=== PATIENT | female | born 1965 | race Caucasian/White ===

== ENCOUNTER → 2021-04-11 | Outpatient (CLI) | payer OTHER ==
[2021-04-11 15:06] LABS: Basophils # (A) 0.07 X 10*3/uL (0.00-0.10); Basophils % (A) 0.9 %; Eosinophils # (A) 0.21 X 10*3/uL (0.04-0.35); Eosinophils % (A) 2.7 %; HCT 42.3 % (37.2-46.3); HGB 14.2 g/dL (12.0-15.0); Lymphocytes # (A) 2.02 X 10*3/uL (0.90-5.00); Lymphocytes % (A) 26.3 %; MCH 33.9 pg (27.0-32.0); MCHC 33.6 g/dL (32.0-37.0); Mean Platelet Volume 10.1 fL (9.5-12.2); Monocytes # (A) 0.88 X 10*3/uL (0.20-1.00); Monocytes % (A) 11.4 %; Neutrophils # (A) 4.46 X 10*3/uL (1.80-7.70); Platelet Count 210 X 10*3/uL (140-440); RBC 4.19 X 10*6/uL (4.10-5.20); RDW 12.6 % (11.5-14.5); WBC 7.69 X 10*3/uL (4.50-10.00)
[2021-04-11 15:50] LABS: ALT 39 U/L (8-44); AST 35 U/L (13-35); African American GFR (CKD) 116.4 (60.0-200.0); Albumin 4.4 g/dL (3.8-4.9); Albumin/Globulin Ratio 1.64 (1.60-3.17); Alkaline Phosphatase 93 U/L (41-126); BUN/Creat Ratio 23.87 Ratio (12.00-20.00); Blood Urea Nitrogen 15.3 mg/dL (9.0-27.0); Calcium 9.4 mg/dL (8.7-10.3); Carbon Dioxide 24.1 mmol/L (20.0-27.5); Chloride 99 mmol/L (96-109); Globulin 2.7 g/dL (1.6-3.3); Glucose 108 mg/dL (70-110); LDL Cholesterol,Calculated 87.9 mg/dL (0.0-131.0); Non-African American GFR(CKD) 100.4 (60.0-200.0); Potassium 4.4 mmol/L (3.5-5.5); Sodium 138 mmol/L (135-145)
[2021-04-11 15:51] LABS: Chol/HDL Ratio 2.42 Ratio
== END | disposition home or self-care (01) ==
LOC: LABWHC1 09:23
PROVIDERS: ATTEND Internal Medicine
DX: Z11.59 Encounter for screening for other viral diseases (principal); I10 Essential (primary) hypertension
CPT/HCPCS: 36415; 80053; 80061; 84443; 85025; 86803

== ENCOUNTER → 2021-05-10 | Outpatient (CLI) | payer OTHER ==
--- NOTE | 2021-05-10 14:52 | CTL ---
E EXAMINATION TYPE: CT Low Dose Lung DATE OF EXAM ORDERED: 05/10/2021 HISTORY: 56-year-old female Z87.891, Personal history of tobacco use. Lung cancer screening CT DLP: [address] CTDI: 2.45 mGy Automated exposure control for dose reduction was used. SCREENING VISIT: Baseline COMPARISON: None TECHNIQUE: Low dose computed tomography scan was performed through the chest with coronal and sagitta l reconstructions. CT DIAGNOSTIC QUALITY: Limited, but interpretable FINDINGS: Heart normal size without pericardial effusion. Mild aneurysm ascending aorta at 4.0 cm. Conventional vessel branching anatomy. Calcified subcarinal and bilateral hilar lymph nodes compatible with prior granulomatous disease. Mild/moderate diffuse bronchial wall thickening. Scattered bilateral benign calcified granulomas. 3 mm anterior right lower lung pulmonary nodule, axial image 149. 4 mm subpleural pulmonary nodule lateral left upper lobe, axial image 74. No consolidation or pleural effusion. Visualized upper abdomen shows no gross abnormality allowing for noncontrast, low-dose technique. Multiple moderate degenerative disc disease mid to lower thoracic spine with anterior plate spondylos is lower thoracic spine. IMPRESSION: 1. LungRADS 2, benign. Evidence of prior granulomatous disease. A couple noncalcified pulmonary nodul es measuring 4 mm and 3 mm on baseline screening. 2. Mild to moderate bronchial wall thickening suggests bronchitis or chronic asthma. Recommend smokin g cessation. 3. Mild aneurysm ascending aorta at 4.[address] LUNG RAD AND CT CHEST RECOMMENDATION: Lung-Rad 2 Benign Appearance or Behavior: Continue annual sc reening with LDCT in 12 months. S Modifier (other clinically significant findings): S, follow-up as clinically indicated for the mild ascending aortic aneurysm.
== END | disposition home or self-care (01) ==
LOC: RADCTMAIN 14:01
PROVIDERS: ATTEND Internal Medicine
DX: Z12.2 Encounter for screening for malignant neoplasm of respiratory organs (principal); R91.8 Other nonspecific abnormal finding of lung field; I71.2 Thoracic aortic aneurysm, without rupture; J98.09 Other diseases of bronchus, not elsewhere classified; Z87.891 Personal history of nicotine dependence
CPT/HCPCS: 71271

== ENCOUNTER → 2021-06-08 | Outpatient (CLI) | payer OTHER ==
--- NOTE | 2021-06-11 09:19 | MM ---
Reason for exam: screening (asymptomatic). Last mammogram was performed 12 years and 3 months ago. History: Patient is postmenopausal. Family history of breast cancer in paternal aunt. Took hormonal contraceptives for 2 months. Physical Findings: A clinical breast exam by your physician is recommended on an annual basis and results should be correlated with mammographic findings. MG Screening Mammo w CAD Bilateral CC, MLO, and XCCL view(s) were taken. Prior study comparison: February 27, 2009, bilateral digital screening mammogram. There are scattered fibroglandular densities. There is no discrete abnormality. ASSESSMENT: Negative, BI-RAD 1 RECOMMENDATION: Routine screening mammogram of both breasts in 1 year.
== END | disposition home or self-care (01) ==
LOC: RADMAMWWP 11:28
PROVIDERS: ATTEND Internal Medicine
DX: Z12.31 Encounter for screening mammogram for malignant neoplasm of breast (principal); Z78.0 Asymptomatic menopausal state; Z80.3 Family history of malignant neoplasm of breast
CPT/HCPCS: 77067

== ENCOUNTER 2021-06-14 11:10 | Day surgery (SDC) | payer OTHER ==
[2021-06-12 18:21] VITALS: BMI 36.8
[~2021-06-14 11:10] MED LIST: LACTATED RINGERS 1,000 ML IV SCH; LIDOCAINE 1% (10MG/ML) FOR IV START INTRADERMA PRN
[2021-06-14 11:32] VITALS: TEMP 97.8
[2021-06-14] MEDS ORDERED: LACTATED RINGERS 1,000 ML IV ONE (11:32)
[2021-06-14] MEDS ORDERED: PROPOFOL 10 MG/ML 20 ML VIAL IV ONE (12:23)
[2021-06-14] MEDS ORDERED: LIDOCAINE 1% INJ 10MG/ML (20 ML MDV) ONE (12:23)
--- NOTE | 2021-06-14 12:50 | P.OP ---
Date of Procedure: 06/14/21 Preoperative Diagnosis: Screening, positive cologuard Procedure(s) Performed: Colonoscopy Anesthesia: MAC Surgeon: Memo Blanchard Estimated Blood Loss (ml): 0 Condition: stable Disposition: same day Description of Procedure: Patient is brought operative suite placed in left lateral decubitus position underwent sedation per department of anesthesia timeout performed correct patient correct procedure correct site was verified rectal exam was performed no gross abnormalities are noted scope was passed from the rectum to the cecum with the slowly withdrawn make sure to visualize all hollins of the colon on the way out there is for polyps noted to in the transverse colon one of these was small and sessile and removed via cold forceps biopsy the second was more pedunculated removed via hot snare polypectomy was 2 polyps also noted within the descending colon and both of these were removed via hot snare polypectomy. No other gross abnormalities are noted patient tolerated the procedure well no apparent complications she'll need a repeat colonoscopy in 5 years
[2021-06-14 13:16] VITALS: BP 135/85; PULSE 50; RESP 20
== END 2021-06-14 13:24 | disposition home or self-care (01) ==
LOC: ORWHC2ENDO 11:10
PROVIDERS: ATTEND Student in an Organized Health Care Education/Training Program
DX: D12.4 Benign neoplasm of descending colon (principal); D12.3 Benign neoplasm of transverse colon; I10 Essential (primary) hypertension; E78.5 Hyperlipidemia, unspecified; Z80.0 Family history of malignant neoplasm of digestive organs; Z86.73 Personal history of transient ischemic attack (TIA), and cerebral infarction without residual deficits; Z90.49 Acquired absence of other specified parts of digestive tract; Z98.51 Tubal ligation status; Z83.3 Family history of diabetes mellitus; Z82.49 Family history of ischemic heart disease and other diseases of the circulatory system; F17.210 Nicotine dependence, cigarettes, uncomplicated; Z79.899 Other long term (current) drug therapy
CPT/HCPCS: 88305; 45380; 45385; J2001; J2704

== ENCOUNTER 2021-08-31 07:34 | Emergency (ER) | payer OTHER ==
[2021-08-31 07:40] VITALS: RESP 18; TEMP 98.1
[2021-08-31] MEDS ORDERED: KETOROLAC 15 MG/ML 1 ML VIAL IM STA (08:27)
--- NOTE | 2021-08-31 08:41 | ED ---
General Adult HPI - General Chief complaint: Neck Pain/Injury Stated complaint: Neck pain Time Seen by Provider: 08/31/21 07:35 Source: patient Mode of arrival: ambulatory Limitations: no limitations - History of Present Illness Initial comments: Patient is a 56-year-old female with past medical history of hypertension who presents to the emergency department with left-sided neck pain. States it has been persistent for the past 2 weeks. She denies any traumatic injuries. 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 She is right-hand dominant. Pain is left side. Feels better when she massages the area. She has been taking Tylenol without improvement in her symptoms. Followed up with her primary care doctor who told her to change her pillow. She has been placing ice to the site. She denies any lateralizing weakness. No headaches or visual changes. No chest pain or shortness of breath. No numbness or tingling in her extremities. No vertigo. No other alleviating, precipitating modifying factors - Related Data Home Medications Medication Instructions Recorded Confirmed Aspirin 325 mg PO DAILY 06/12/21 06/14/21 Atenolol [Tenormin] 50 mg PO DAILY 06/12/21 06/14/21 Atorvastatin [Lipitor] 20 mg PO HS 06/12/21 06/14/21 Eye Drops (Unsure Of Which 2) 1 drop BOTH EYES DIRECTED 06/12/21 06/14/21 Lisinopril-Hctz 20-12.5 mg 1 tab PO DAILY 06/12/21 06/14/21 [Zestoretic 20-12.5] Vitamin D3 (Unknown) 1 tab PO DAILY 06/12/21 06/14/21 Zinc (Unknown Dose) 1 tab PO DAILY 06/12/21 06/14/21 Previous Rx's Medication Instructions Recorded Cyclobenzaprine [Flexeril] 10 mg PO TID PRN #24 tab 08/31/21 Naproxen [Naprosyn] 500 mg PO Q12HR #40 tab 08/31/21 Allergies Allergy/AdvReac Type Severity Reaction Status Date / Time No Known Allergies Allergy Verified 08/31/21 07:40 Review of Systems ROS Statement: Those systems with pertinent positive or pertinent negative responses have been documented in the HPI. ROS Other: All systems not noted in ROS Statement are negative. Past Medical History Past Medical History: No Reported History History of Any Multi-Drug Resistant Organisms: None Reported Past Surgical History: Cholecystectomy, Tubal Ligation Past Psychological History: No Psychological Hx Reported Smoking Status: Current every day smoker Past Alcohol Use History: Occasional Past Drug Use History: None Reported General Exam Limitations: no limitations General appearance: alert, in no apparent distress Head exam: Present: atraumatic, normocephalic, normal inspection Eye exam: Present: normal appearance, PERRL, EOMI. Absent: scleral icterus, conjunctival injection, periorbital swelling ENT exam: Present: normal exam, mucous membranes moist Neck exam: Present: tenderness (left paracervical tenderness. ropey texture left trapezius). Absent: meningismus, lymphadenopathy Respiratory exam: Present: normal lung sounds bilaterally. Absent: respiratory distress, wheezes, rales, rhonchi, stridor Cardiovascular Exam: Present: regular rate, normal rhythm, normal heart sounds. Absent: systolic murmur, diastolic murmur, rubs, gallop, clicks GI/Abdominal exam: Present: soft, normal bowel sounds. Absent: distended, tenderness, guarding, rebound, rigid Extremities exam: Present: normal inspection, full ROM, normal capillary refill, other (equal separator inserter strength). Absent: tenderness, pedal edema, joint swelling, calf tenderness Back exam: Present: normal inspection Neurological exam: Present: alert, oriented X3, CN II-XII intact Psychiatric exam: Present: normal affect, normal mood Skin exam: Present: warm, dry, intact, normal color. Absent: rash Course Vital Signs 08/31/21 08/31/21 07:35 08:57 Temperature 98.1 F Pulse Rate 68 70 Respiratory 18 18 Rate Blood Pressure 132/66 130/68 O2 Sat by Pulse 98 98 Oximetry Medical Decision Making - Medical Decision Making Upon arrival patient is placed into room 2. Symptoms consistent with trapezius strain. She is given a 30 mg IM injection of Toradol. Patient will be discharged home with a prescription for Naprosyn and Flexeril. Instructed to place warm compresses to the site. Follow-up with her doctor in 2 to 4 days and return for any new or worsening symptoms Disposition Clinical Impression: Trapezius muscle strain Disposition: HOME SELF-CARE Condition: Stable Instructions (If sedation given, give patient instructions): Neck Pain (ED) Additional Instructions: Take the pain medications as directed. Only take the muscle relaxer when you are at home and not driving as they may make you sleep. Use a warm compress to the site. Follow-up with your doctor in 2-4 days or return for any new or worsening symptoms Prescriptions: Cyclobenzaprine [Flexeril] 10 mg PO TID PRN #24 tab PRN Reason: Muscle Spasm Naproxen [Naprosyn] 500 mg PO Q12HR #40 tab Is patient prescribed a controlled substance at d/c from ED?: No Referrals: Mike Moon MD [Primary Care Provider] - 1-2 days Time of Disposition: 08:41
[2021-08-31 08:58] VITALS: BP 130/68; PULSE 70
== END 2021-08-31 08:57 | disposition home or self-care (01) ==
LOC: EC 07:34
DX: S16.1XXA Strain of muscle, fascia and tendon at neck level, initial encounter (principal); I10 Essential (primary) hypertension; F17.200 Nicotine dependence, unspecified, uncomplicated; Z79.82 Long term (current) use of aspirin; Z79.899 Other long term (current) drug therapy; X58.XXXA Exposure to other specified factors, initial encounter
CPT/HCPCS: 99283; 96372; J1885

== ENCOUNTER 2021-11-21 02:45 | Observation (INO) | payer OTHER ==
[2021-11-21 03:24] LABS: Basophils % (A) 0 %; Eosinophils # (A) 0.1 k/uL (0-0.7); Eosinophils % (A) 2 %; HCT 38.5 % (34.0-46.0); Lymphocytes % (A) 28 %; MCHC 36.3 g/dL (31.0-37.0); MCV 99.3 fL (80.0-100.0); Mean Platelet Volume 8.1; Monocytes # (A) 0.2 k/uL (0-1.0); Monocytes % (A) 7 %; Neutrophils % (A) 60 %; Platelet Count 107 k/uL (150-450); RBC 3.88 m/uL (3.80-5.40); RDW 13.1 % (11.5-15.5); WBC 3.4 k/uL (3.8-10.6)
[2021-11-21 03:35] LABS: Partial Thromboplastin Time 23.2 sec (22.0-30.0); Prothrombin Time 10.6 sec (9.0-12.0)
[2021-11-21 03:38] LABS: ALT 93 U/L (4-34); AST 105 U/L (14-36); African American GFR (CKD) >90 (>60 ml/min/1.73 sqM); Albumin 4.6 g/dL (3.5-5.0); Alkaline Phosphatase 82 U/L (38-126); Anion Gap 18 mmol/L; Blood Urea Nitrogen 12 mg/dL (7-17); Calcium 9.3 mg/dL (8.4-10.2); Carbon Dioxide 21 mmol/L (22-30); Chloride 81 mmol/L (98-107); Glucose 148 mg/dL (74-99); Magnesium 1.4 mg/dL (1.6-2.3); Non-African American GFR(CKD) >90 (>60 ml/min/1.73 sqM); Potassium 3.1 mmol/L (3.5-5.1); Sodium 120 mmol/L (137-145); Total Bilirubin 0.5 mg/dL (0.2-1.3); Total Protein 7.5 g/dL (6.3-8.2)
--- NOTE | 2021-11-21 03:53 | ED ---
Chest Pain HPI - General Chief Complaint: Chest Pain Stated Complaint: Chest pain Time Seen by Provider: 11/21/21 03:48 Source: patient, RN notes reviewed, old records reviewed Mode of arrival: ambulatory Limitations: no limitations - History of Present Illness Initial Comments: This is a 56-year-old female DF for evaluation of chest pain chest pain started going on throughout the course of today with no history of the same. She has mild nausea mild shortness of breath symptoms are worse with exertion. MD Complaint: chest pain -: hour(s) Onset: during rest, during exertion Pain Location: substernal Pain Radiation: none Severity: moderate Severity scale (1-10): 5 Quality: tightness, aching, heaviness Consistency: constant Improves With: nothing Worsens With: nothing Context: recent illness Anginal Symptoms: diaphoresis, dyspnea Other Symptoms: cough Treatments Prior to Arrival: none - Related Data Home Medications Medication Instructions Recorded Confirmed Atorvastatin [Lipitor] 20 mg PO HS 06/12/21 11/21/21 atenoloL [Tenormin] 50 mg PO DAILY 06/12/21 11/21/21 Aspirin 325 mg PO DAILY 11/21/21 11/21/21 Previous Rx's Medication Instructions Recorded lisinopriL 40 mg PO DAILY #30 tab 11/22/21 Allergies Allergy/AdvReac Type Severity Reaction Status Date / Time No Known Allergies Allergy Verified 11/21/21 07:11 Review of Systems ROS Statement: Those systems with pertinent positive or pertinent negative responses have been documented in the HPI. ROS Other: All systems not noted in ROS Statement are negative. Past Medical History Past Medical History: No Reported History History of Any Multi-Drug Resistant Organisms: None Reported Past Surgical History: Cholecystectomy, Tubal Ligation Past Psychological History: No Psychological Hx Reported Smoking Status: Current every day smoker Past Alcohol Use History: Occasional Past Drug Use History: None Reported - Past Family History Father Family Medical History: COPD Mother Family Medical History: CVA/TIA, Myocardial Infarction ([place]) General Exam Limitations: no limitations General appearance: alert, in no apparent distress Head exam: Present: atraumatic, normocephalic, normal inspection Eye exam: Present: normal appearance, PERRL, EOMI. Absent: scleral icterus, conjunctival injection, periorbital swelling ENT exam: Present: normal exam, mucous membranes moist Neck exam: Present: normal inspection. Absent: tenderness, meningismus, lymphadenopathy Respiratory exam: Present: normal lung sounds bilaterally. Absent: respiratory distress, wheezes, rales, rhonchi, stridor Cardiovascular Exam: Present: regular rate, normal rhythm, normal heart sounds. Absent: systolic murmur, diastolic murmur, rubs, gallop, clicks GI/Abdominal exam: Present: soft, normal bowel sounds. Absent: distended, tenderness, guarding, rebound, rigid Extremities exam: Present: normal inspection, full ROM, normal capillary refill. Absent: tenderness, pedal edema, joint swelling, calf tenderness Back exam: Present: normal inspection Neurological exam: Present: alert, oriented X3, CN II-XII intact Psychiatric exam: Present: normal affect, normal mood Skin exam: Present: warm, dry, intact, normal color. Absent: rash Course Vital Signs 11/21/21 11/21/21 11/21/21 02:46 06:13 09:12 Temperature 98.2 F 97.9 F Pulse Rate 71 56 L 73 Respiratory 18 22 15 Rate Blood Pressure 167/85 156/90 120/67 O2 Sat by Pulse 98 97 97 Oximetry 11/21/21 16:51 Temperature Pulse Rate 57 L Respiratory 16 Rate Blood Pressure 130/85 O2 Sat by Pulse 99 Oximetry - Reevaluation(s) Reevaluation #1: Medical record is reviewed Patient feels improved here in the emergency department Patient feels comfortable for discharge Chest Pain MDM - MDM 56 female DF for evaluation. Patient be admitted for chest pain observation Disposition Clinical Impression: Atypical chest pain, Chest pain, Hyponatremia, Hypomagnesemia, Weakness Disposition: ADMITTED IP TO THIS HOSP Condition: Fair Is patient prescribed a controlled substance at d/c from ED?: No
--- NOTE | 2021-11-21 04:15 | XR ---
EXAMINATION TYPE: XR chest 2V DATE OF EXAM: 11/21/2021 COMPARISON: NONE HISTORY: Chest pain TECHNIQUE: FINDINGS: Heart and mediastinum are normal. Lungs are clear. Diaphragm is normal. Bony thorax appears normal. IMPRESSION: Normal chest.
[2021-11-21] MEDS ORDERED: MORPHINE SULFATE 4 MG/ML SYRINGE IV PRN (04:47)
[2021-11-21] MEDS ORDERED: ONDANSETRON 4 MG/2 ML VIAL IVP PRN (04:47)
[2021-11-21] MEDS ORDERED: NALOXONE 0.4 MG/ML 1 ML VIAL IV PRN (04:47)
[2021-11-21] MEDS: SODIUM CHLORIDE 0.9% 1,000 ML IV SCH ×2 (04:55→14:25)
[2021-11-21] MEDS: MAGNESIUM SULFATE-D5W PMX 1 GM in DEXTROSE/WATER 1 100ML.BAG IVPB SCH ×2 (05:26→06:35)
[2021-11-21] MEDS ORDERED: NICOTINE GUM (POLACRILEX) 2 MG GUM BUCCAL PRN (08:59)
[2021-11-21] MEDS ORDERED: TEMAZEPAM 15 MG CAP PO PRN (08:59)
[2021-11-21] MEDS ORDERED: ACETAMINOPHEN TAB 325 MG TAB PO PRN (08:59)
[2021-11-21] MEDS ORDERED: lisinopriL 20 MG TAB PO SCH ×2 (09:00→21:00)
[2021-11-21] MEDS ORDERED: PANTOPRAZOLE 40 MG/10 ML VIAL IV SCH (09:00)
--- NOTE | 2021-11-21 09:13 | P.HPIM ---
History of Present Illness H&P Date: 11/21/21 Chief Complaint: chest pain Patient is a 56-year-old female with known dyslipidemia, hypertension, and tobacco use who presented to the ER with complaints of chest pain. On arrival her blood pressure was 167/85. Laboratory analysis showed a white blood cell count of 3.4, platelets 107, sodium 120, potassium 3.1, chloride 81, carbon dioxide 21, magnesium 1.4. Initial troponin was negative. Patient seen and examined at bedside. Pain across bilateal chest that started yesterday and was constant in nature.., no shrotness of breath, no nausea, not light headed or dizzy, minimal tingling in her left arm, no significant sweating. no recent cough, cold, fevers, flus. + vomiting X 1 today, no diarrhea, no difficulty urinating. No hx of probelms with her sodium. Feels like she has been eating and drinking well at home. Pertinent positives and negatives as discussed in HPI, a complete review of systems was performed and all other systems are negative. Vital signs reviewed General: nontoxic, no distress, appears at stated age Derm: warm, dry Head: atraumatic, normocephalic, symmetric Eyes: EOMI, no lid lag, anicteric sclera, pupils equal round reactive to light ENT: Nose and ears atraumatic, no thrush, no pharyngeal erythema Neck: No thyromegaly, no cervical lymphadenopathy, trachea midline, supple Mouth: no lip lesion, mucus membranes moist Cardiovascular: S1S2 reg, no murmur, positive posterior tibial pulse bilateral, no edema, capillary refill less than 2 seconds Lungs: clear to auscultation bilateral, no rhonchi, no rales, no wheeze, no accessory muscle use Abdominal: soft, nontender to palpation, no guarding, no appreciable organomegaly, normal bowel sounds Ext: no gross muscle atrophy, muscle strength muscle strength 5 out of 5 in all 4 extremities, no contractures Neuro: CN II-XII grossly intact, light touch intact all 4 extremities, finger to nose within normal limits, Psych: Alert, oriented, appropriate affect Assessment/Plan: Atypical chest pain - trend troponin - check echo - tele - ASA - EKG ordered and obtained, patient currently chest pain free, rate 58, QRS 120, mild J point elevation in I, aVL, and V 6 , Left axis deviation - consult cardiology Hyponatremia - IVF fluids - serial lytes - consult nephro - hold HCTZ - check urine sodium, urine osmol, and serum osmol Hypomagnesemia - replaced - recheck in AM Hypokalemia - replace - recheck in AM Leukopenia Thrombocytopenia - Follow CBC Tobacco abuse - Cessation - nicotine replacement If SAIDH would check low dose chest CT given significant tobacco hx, but more likely due to dehydration. The patient is admitted with an anticipated greater than 2 midnight stay for evaluation of hyponatremia. Surrogate decision-maker: ravindra Parikh CODE STATUS:Full DVT prophylaxis: SCDs Discussed with: Patient, nursing Anticipated discharge date: in 2-[address]: home A total of 65 minutes was spent on the care of this complex patient more than 50% of the time was spent in counseling and care coordination. Past Medical History Past Medical History: Hyperlipidemia, Hypertension History of Any Multi-Drug Resistant Organisms: None Reported Past Surgical History: Cholecystectomy, Tubal Ligation Past Psychological History: No Psychological Hx Reported Smoking Status: Current every day smoker (1 ppd since age 21) Past Alcohol Use History: Occasional Past Drug Use History: None Reported - Past Family History Father Family Medical History: COPD Mother Family Medical History: CVA/TIA, Myocardial Infarction ([place]) Medications and Allergies Home Medications Medication Instructions Recorded Confirmed Type Atorvastatin [Lipitor] 20 mg PO HS 06/12/21 11/21/21 History Lisinopril-Hctz 20-12.5 mg 2 tab PO DAILY 06/12/21 11/21/21 History [Zestoretic 20-12.5] atenoloL [Tenormin] 50 mg PO DAILY 06/12/21 11/21/21 History Aspirin 325 mg PO DAILY 11/21/21 11/21/21 History Allergies Allergy/AdvReac Type Severity Reaction Status Date / Time No Known Allergies Allergy Verified 11/21/21 07:11 Physical Exam Osteopathic Statement: *. No significant issues noted on an osteopathic structural exam other than those noted in the History and Physical/Consult. Vitals: Vital Signs Temp Pulse Resp BP Pulse Ox 11/21/21 06:13 97.9 F 56 L 22 156/90 97 11/21/21 02:46 98.2 F 71 18 167/85 98 Intake and Output 11/20/21 11/21/21 11/21/21 22:59 06:59 14:59 Other: Weight 104.326 kg Results CBC & Chem 7: 11/21/21 03:06 11/21/21 03:06 Labs: Abnormal Lab Results - Last 24 Hours (Table) 11/21/21 11/21/21 Range/Units 03:06 03:06 WBC 3.4 L (3.8-10.6) k/uL MCH 36.0 H (25.0-35.0) pg Plt Count 107 L (150-450) k/uL Sodium 120 L (137-145) mmol/L Potassium 3.1 L (3.5-5.1) mmol/L Chloride 81 L (98-107) mmol/L Carbon Dioxide 21 L (22-30) mmol/L Glucose 148 H (74-99) mg/dL Magnesium 1.4 L (1.6-2.3) mg/dL AST 105 H (14-36) U/L ALT 93 H (4-34) U/L
[2021-11-21] MEDS: ASPIRIN 325 MG TAB PO SCH (09:14)
[2021-11-21] MEDS: atenoloL 50 MG TAB PO SCH (09:14)
[2021-11-21] MEDS: NICOTINE 21MG/24HR PATCH TRANSDERM SCH (09:14)
[2021-11-21 10:40] LABS: African American GFR (CKD) >90 (>60 ml/min/1.73 sqM); Anion Gap 14 mmol/L; Blood Urea Nitrogen 13 mg/dL (7-17); Calcium 8.9 mg/dL (8.4-10.2); Carbon Dioxide 27 mmol/L (22-30); Chloride 82 mmol/L (98-107); Glucose 160 mg/dL (74-99); Non-African American GFR(CKD) >90 (>60 ml/min/1.73 sqM); Potassium 3.5 mmol/L (3.5-5.1); Sodium 123 mmol/L (137-145)
--- NOTE | 2021-11-21 11:52 | CA ---
Transthoracic Echo Report Name: Leola Sharif Age: 56 Gender: F : 1965 Exam Date: 11/21/2021 10:52 Exam Location: [facility] Ht (in): 67 Wt (lb): 230 Ordering Physician: Saniya Cortes DO Attending/Referring Phys: Business Education Professor April Gonzalez, TRACEY Procedure CPT: Indications: Chest Pain Cardiac Hx: Smoker, Htn, Fm hx of heart disease Technical Quality: Fair Contrast 1: Total Dose (mL): Contrast 2: Total Dose (mL): MEASUREMENTS (Male / Female) Normal Values 2D ECHO LV Diastolic Diameter PLAX 5.7 cm 4.2 - 5.9 / 3.9 - 5.3 cm LV Systolic Diameter PLAX 4.1 cm IVS Diastolic Thickness 1.2 cm 0.6 - 1.0 / 0.6 - 0.9 cm LVPW Diastolic Thickness 1.2 cm 0.6 - 1.0 / 0.6 - 0.9 cm LV Relative Wall Thickness 0.4 M-MODE Aortic Root Diameter MM 3.3 cm LA Systolic Diameter MM 4.0 cm LA Ao Ratio MM 1.2 MV E Point Septal Separation 0.8 cm AV Cusp Separation MM 2.2 cm DOPPLER AV Peak Velocity 128.4 cm/s AV Peak Gradient 6.6 mmHg MV Area PHT 2.5 cm??? MR Peak Velocity 96.5 cm/s MR Peak Gradient 3.7 mmHg Mitral E Point Velocity 78.3 cm/s Mitral A Point Velocity 105.8 cm/s Mitral E to A Ratio 0.7 MV Deceleration Time 302.8 ms TR Peak Velocity 150.1 cm/s TR Peak Gradient 9.0 mmHg Right Ventricular Systolic Press 13.2 mmHg FINDINGS Left Ventricle Mildly increased septal wall thickness. Mildly increased posterior wall thickness. Mildly increased left ventricular diastolic diameter. Left ventricular ejection fraction is estimated at 55-60 %. Left ventricular cavity size normal. Right Ventricle The right ventricle is normal in size and function. Right Atrium The right atrium is normal in size. Left Atrium The left atrium is normal in size. Mitral Valve Structurally normal mitral valve without significant stenosis or prolapse. There is trace mitral regurgitation. Aortic Valve Structurally normal aortic valve without significant sclerosis or stenosis. There is no aortic regurgitation. Tricuspid Valve Structurally normal tricuspid valve without significant stenosis. Pulmonary artery systolic pressure is normal. Trace tricuspid regurgitation. Pulmonic Valve Structurally normal pulmonic valve without significant stenosis. There is no pulmonic regurgitation. Pericardium Normal pericardium without effusion. Aorta Normal aortic root dimension. CONCLUSIONS Normal LV systolic function Previewed by: Dr. Figueroa Rosa MD (Electronically Signed) Final Date: 21 November 2021 11:51
--- NOTE | 2021-11-21 12:37 | P.NPCON ---
History of Present Illness - Reason for Consult hyponatremia - History of Present Illness Patient is a 56-year-old female with history of hypertension, tobacco abuse who was admitted to the hospital with complaints of chest pain. Patient denied any history of fever or chills. She denied any history of nausea vomiting or diarrhea. No new medications that were started recently No complaints of dizziness lightheadedness and no history of seizures. Serum sodium was noted to be 120 Patient denies any previous history of hyponatremia. Patient had been on thiazide diuretics at home which is now discontinued. Blood pressure was not low Patient was maintained on normal saline and repeat sodium is at 123. Urine osmolality is 165 previous sodium of 138 on 04/11/2021 Review of Systems As per HPI, other systems negative Past Medical History Past Medical History: Hyperlipidemia, Hypertension History of Any Multi-Drug Resistant Organisms: None Reported Past Surgical History: Cholecystectomy, Tubal Ligation Past Psychological History: No Psychological Hx Reported Smoking Status: Current every day smoker (1 ppd since age 21) Past Alcohol Use History: Occasional Past Drug Use History: None Reported - Past Family History Father Family Medical History: COPD Mother Family Medical History: CVA/TIA, Myocardial Infarction ([place]) Medications and Allergies Home Medications Medication Instructions Recorded Confirmed Type Atorvastatin [Lipitor] 20 mg PO HS 06/12/21 11/21/21 History Lisinopril-Hctz 20-12.5 mg 2 tab PO DAILY 06/12/21 11/21/21 History [Zestoretic 20-12.5] atenoloL [Tenormin] 50 mg PO DAILY 06/12/21 11/21/21 History Aspirin 325 mg PO DAILY 11/21/21 11/21/21 History Allergies Allergy/AdvReac Type Severity Reaction Status Date / Time No Known Allergies Allergy Verified 11/21/21 07:11 Physical Exam Vitals: Vital Signs Temp Pulse Resp BP Pulse Ox 11/21/21 09:12 73 15 120/67 97 11/21/21 06:13 97.9 F 56 L 22 156/90 97 11/21/21 02:46 98.2 F 71 18 167/85 98 Intake and Output 11/20/21 11/21/21 11/21/21 22:59 06:59 14:59 Output Total 39 Balance -39 Output: Post Void Residual 39 Other: Weight 104.326 kg Patient is awake, comfortable, not in any acute distress Examination of the heart S1 and S2 Examination lungs bilateral breath sounds are heard Abdomen is soft nontender Examination of the lower extremities shows no evidence of edema [employer] exam grossly intact Results - Lab Results Most recent lab results Calcium 8.9 mg/dL (8.4-10.2) 11/21/21 10:09 Magnesium 1.4 mg/dL (1.6-2.3) L 11/21/21 03:06 11/21/21 03:06 11/21/21 10:09 Assessment and Plan Assessment: 1. Hyponatremia. Patient appears euvolemic however serum sodium has improved with normal saline administration. They may be a component of hypovolemia. Patient was on thiazide diuretics which are currently on hold. I will continue with the saline for now. Check TSH level 2. Hypertension continue off of thiazide diuretics and increase MALIK inhibitor's 3. Hypokalemia secondary to diuretics, replace 4. Dyslipidemia maintained on Lipitor 5. Chest pain appears to be atypical Plan: Continue with saline Continue to hold hydrochlorothiazide Check TSH Increase oral protein intake Increase lisinopril
--- NOTE | 2021-11-21 12:59 | P.CRDCN ---
History of Present Illness Consult date: 11/21/21 History of present illness: Patient has a known history of hypertension hyperlipidemia, thoracic aortic aneurysm, EtOH abuse, current smoker we have been consulted to see the patient for chest pain. Patient follows with Dr. Rosa in the office. Patient initially presented to the ER with substernal chest pain that did not radiate anywhere. Patient's EKG showed sinus rhythm without ischemic changes. Troponins are negative 2. Patient is found to be hypernatremic and hypokalemic. Her chest x- ray was negative for acute cardiopulmonary process. Her echocardiogram showed a normal LV function. She is scheduled for an outpatient stress next week. Acute coronary syndrome has been ruled out, Chest pain believed to be secondary to hypernatremia and hyperkalemia. recommended patient undergo outpatient stress test. Review of Systems REVIEW OF SYSTEMS At the time of my exam: CONSTITUTIONAL: Denies fever or chills. EYES: Negative for vision changes ENT: Negative for hearing loss CARDIOVASCULAR: Denies chest pain, shortness of breath, diaphoresis, orthopnea, PND or palpitations. VASCULAR: Denies edema RESPIRATORY: Denies cough. GASTROINTESTINAL: Denies abdominal pain, diarrhea, constipation, nausea or vomiting. MUSCULOSKELETAL: Denies myalgias. NEUROLOGIC: Denies numbness, tingling, headache or weakness. ENDOCRINE: Denies fatigue, weight change, polydipsia or polyurina. GENITOURINARY: Denies burning, hematuria or urgency with micturation. HEMATOLOGIC: Denies history of anemia or bleeding. DERMATOLOGY: Denies rash or skin sores PSYCH: Negative for depression or hallucinations. Past Medical History Past Medical History: Hyperlipidemia, Hypertension History of Any Multi-Drug Resistant Organisms: None Reported Past Surgical History: Cholecystectomy, Tubal Ligation Past Psychological History: No Psychological Hx Reported Smoking Status: Current every day smoker (1 ppd since age 21) Past Alcohol Use History: Occasional Past Drug Use History: None Reported - Past Family History Father Family Medical History: COPD Mother Family Medical History: CVA/TIA, Myocardial Infarction ([place]) Medications and Allergies Home Medications Medication Instructions Recorded Confirmed Type Atorvastatin [Lipitor] 20 mg PO HS 06/12/21 11/21/21 History Lisinopril-Hctz 20-12.5 mg 2 tab PO DAILY 06/12/21 11/21/21 History [Zestoretic 20-12.5] atenoloL [Tenormin] 50 mg PO DAILY 06/12/21 11/21/21 History Aspirin 325 mg PO DAILY 11/21/21 11/21/21 History Allergies Allergy/AdvReac Type Severity Reaction Status Date / Time No Known Allergies Allergy Verified 11/21/21 07:11 Physical Exam Vitals: Vital Signs Temp Pulse Resp BP Pulse Ox 11/21/21 09:12 73 15 120/67 97 11/21/21 06:13 97.9 F 56 L 22 156/90 97 11/21/21 02:46 98.2 F 71 18 167/85 98 Intake and Output 11/20/21 11/21/21 11/21/21 22:59 06:59 14:59 Output Total 39 Balance -39 Output: Post Void Residual 39 Other: Weight 104.326 kg PHYSICAL EXAMINATION VITAL SIGNS: Reviewed General: The patient is awake and alert, in no distress, and does not appear acutely ill. Skin: Skin is warm and dry and no rashes or lesions are noted. Eye: Pupils are equal, round and reactive to light, extra-ocular movements are intact; there is normal conjunctiva bilaterally. Ears, nose, mouth and throat: There are moist mucous membranes and no oral lesions. Neck: The neck is supple, there is no tenderness or JVD. Cardiovascular: There is regular rate and rhythm. No murmur, rub or gallop is appreciated. Respiratory: Lungs are clear to auscultation, respirations are non-labored, breath sounds are equal. Gastrointestinal: Soft, non-distended, non-tender abdomen without masses or organomegaly noted. There is no rebound or guarding present. Bowel sounds are unremarkable. Back: There is no tenderness to palpation in the midline. There is no obvious deformity. Musculoskeletal: Normal ROM, no tenderness, There is no pedal edema. There is no calf tenderness or swelling. Extremities: Mild bilateral pitting edema Vascular: Femoral pulse is normal. Posterior tibial pulses are normal .Dorsalis pedis is palpable. Neurological: CN II-XII intact. There are no obvious motor or sensory deficits. Speech is normal. Psychiatric: Cooperative, appropriate mood & affect, normal judgment Results 11/21/21 03:06 11/21/21 10:09 Cardiac Enzymes 11/21/21 11/21/21 11/21/21 Range/Units 03:06 03:06 10:09 AST 105 H (14-36) U/L Troponin I <0.012 <0.012 (0.000-0.034) ng/mL Coagulation 11/21/21 Range/Units 03:06 PT 10.6 (9.0-12.0) sec APTT 23.2 (22.0-30.0) sec CBC 11/21/21 Range/Units 03:06 WBC 3.4 L (3.8-10.6) k/uL RBC 3.88 (3.80-5.40) m/uL Hgb 14.0 (11.4-16.0) gm/dL Hct 38.5 (34.0-46.0) % Plt Count 107 L (150-450) k/uL Comprehensive Metabolic Panel 11/21/21 11/21/21 Range/Units 03:06 10:09 Sodium 120 L 123 L (137-145) mmol/L Potassium 3.1 L 3.5 (3.5-5.1) mmol/L Chloride 81 L 82 L (98-107) mmol/L Carbon Dioxide 21 L 27 (22-30) mmol/L BUN 12 13 (7-17) mg/dL Creatinine 0.67 0.67 (0.52-1.04) mg/dL Glucose 148 H 160 H (74-99) mg/dL Calcium 9.3 8.9 (8.4-10.2) mg/dL AST 105 H (14-36) U/L ALT 93 H (4-34) U/L Alkaline Phosphatase 82 (38-126) U/L Total Protein 7.5 (6.3-8.2) g/dL Albumin 4.6 (3.5-5.0) g/dL Current Medications Generic Name Dose Route Start Last Admin Trade Name Freq PRN Reason Stop Dose Admin Acetaminophen 650 mg 11/21/21 08:59 Acetaminophen Tab 325 Mg Tab PO Q6HR PRN Mild Pain or Fever > 100.5 Aspirin 325 mg 11/21/21 09:00 11/21/21 09:14 Aspirin 325 Mg Tab PO 325 mg DAILY ESPERANZA Administration Atenolol 50 mg 11/21/21 09:00 11/21/21 09:14 Atenolol 50 Mg Tab PO 50 mg DAILY ESPERANZA Administration Atorvastatin Calcium 20 mg 11/21/21 21:00 Atorvastatin 20 Mg Tab PO HS ESPERANZA Sodium Chloride 1,000 mls @ 75 mls/hr 11/21/21 05:00 11/21/21 04:55 Saline 0.9% IV 130 mls/hr .[id number] ESPERANZA Administration Lisinopril 20 mg 11/21/21 09:00 11/21/21 09:14 Lisinopril 20 Mg Tab PO 20 mg DAILY ESPERANZA Administration Morphine Sulfate 4 mg 11/21/21 04:47 Morphine Sulfate 4 Mg/Ml Syringe IV Q4HR PRN Severe Pain Naloxone HCl 0.2 mg 11/21/21 04:47 Naloxone 0.4 Mg/Ml 1 Ml Vial IV Q2M PRN Opioid Reversal Nicotine 1 patch 11/21/21 09:00 11/21/21 09:14 Nicotine 21mg/24hr Patch TRANSDERM 1 patch DAILY ESPERANZA Administration Nicotine Polacrilex 2 mg 11/21/21 08:59 Nicotine Gum (Polacrilex) 2 Mg Gum BUCCAL Q2HR PRN Nicotine Cravings Ondansetron HCl 4 mg 11/21/21 04:47 11/21/21 06:08 Ondansetron 4 Mg/2 Ml Vial IVP 4 mg Q8HR PRN Administration Nausea And Vomiting Pantoprazole Sodium 40 mg 11/21/21 09:00 11/21/21 08:28 Pantoprazole 40 Mg/10 Ml Vial IV 40 mg DAILY ESPERANZA Administration Temazepam 15 mg 11/21/21 08:59 Temazepam 15 Mg Cap PO HS PRN Insomnia Intake and Output 11/20/21 11/21/21 11/21/21 22:59 06:59 14:59 Output Total 39 Balance -39 Output: Post Void Residual 39 Other: Weight 104.326 kg 11/21/21 03:06 11/21/21 10:09 Assessment and Plan Assessment: Chest pain acute [place] ruled out Hypertension Plan: Obtained and reviewed echocardiogram Troponins negative x2 will obtain third troponin Supplement sodium and potassium Continue with current cardiac medications Recommended patient undergo outpatient stress test once hyponatremia and hyperkalemia resolved
[2021-11-21 16:35] LABS: African American GFR (CKD) >90 (>60 ml/min/1.73 sqM); Anion Gap 11 mmol/L; Blood Urea Nitrogen 12 mg/dL (7-17); Calcium 8.8 mg/dL (8.4-10.2); Carbon Dioxide 29 mmol/L (22-30); Chloride 85 mmol/L (98-107); Glucose 123 mg/dL (74-99); Non-African American GFR(CKD) 85 (>60 ml/min/1.73 sqM); Potassium 4.1 mmol/L (3.5-5.1); Sodium 125 mmol/L (137-145)
[2021-11-21 20:43] LABS: African American GFR (CKD) >90 (>60 ml/min/1.73 sqM); Anion Gap 9 mmol/L; Blood Urea Nitrogen 14 mg/dL (7-17); Calcium 8.9 mg/dL (8.4-10.2); Carbon Dioxide 30 mmol/L (22-30); Chloride 88 mmol/L (98-107); Glucose 104 mg/dL (74-99); Non-African American GFR(CKD) >90 (>60 ml/min/1.73 sqM); Potassium 4.2 mmol/L (3.5-5.1); Sodium 127 mmol/L (137-145)
[2021-11-21] MEDS ORDERED: ATORVASTATIN 20 MG TAB PO SCH (21:00)
[2021-11-22] MEDS: SODIUM CHLORIDE 0.9% 1,000 ML IV SCH ×2 (01:00→08:17)
[2021-11-22] MEDS ORDERED: PANTOPRAZOLE 40 MG TABLET PO SCH (07:30)
[2021-11-22 07:38] VITALS: BP 155/72; PULSE 59; RESP 17; TEMP 97.9
[2021-11-22] MEDS: atenoloL 50 MG TAB PO SCH (08:17)
[2021-11-22] MEDS: ASPIRIN 325 MG TAB PO SCH (08:17)
[2021-11-22] MEDS: NICOTINE 21MG/24HR PATCH TRANSDERM SCH (08:18)
[2021-11-22] MEDS ORDERED: lisinopriL 20 MG TAB PO SCH (09:00)
--- NOTE | 2021-11-22 09:11 | P.PN ---
Subjective Patient is seen for follow-up for hyponatremia which appears to be hypovolemic. Serum sodium has improved with normal saline. Overall patient states she is feeling better and wants to go home today. Thiazide diuretics currently on hold. Objective - Vital Signs Vital signs: Vital Signs Temp 97.9 F 11/22/21 07:23 Pulse 59 L 11/22/21 07:23 Resp 17 11/22/21 07:23 BP 155/72 11/22/21 07:23 Pulse Ox 99 11/22/21 07:23 FiO2 Intake & Output 11/21/21 11/22/21 11/22/21 18:59 06:59 18:59 Intake Total 130 Output Total 39 Balance 91 Weight 104.326 kg Intake: Intake, IV Titration 130 Amount Sodium Chloride 0.9% 1, 130 000 ml @ 50 mls/hr IV . 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 Hyponatremia. Patient appears euvolemic however serum sodium has improved with normal saline administration.. Patient was on thiazide diuretics which are currently on hold. TSH is normal 2. Hypertension continue off of thiazide diuretics and increase MALIK inhibitor's 3. Hypokalemia secondary to diuretics, replace 4. Dyslipidemia maintained on Lipitor 5. Chest pain appears to be atypical Plan: Continue to hold thiazide diuretics Patient can likely be discharged today with repeat labs to be done in 2-3 days post discharge. [place] patient is encouraged to increase oral protein intake
[2021-11-22 09:21] LABS: Albumin 4.1 g/dL (3.8-4.9); Albumin/Globulin Ratio 1.78 (1.60-3.17); BUN/Creat Ratio 14.86 Ratio (12.00-20.00); Blood Urea Nitrogen 10.4 mg/dL (9.0-27.0); Calcium 8.9 mg/dL (8.7-10.3); Globulin 2.3 g/dL (1.6-3.3); Magnesium 2.1 mg/dL (1.5-2.4); Non-African American GFR(CKD) 97.5 (60.0-200.0); Potassium 3.9 mmol/L (3.5-5.5); Total Bilirubin 0.5 mg/dL (0.30-1.20); Total Protein 6.4 g/dL (6.2-8.2)
--- NOTE | 2021-11-22 10:12 | P.PN ---
Subjective Progress Note Date: 11/22/21 Patient has a known history of hypertension hyperlipidemia, thoracic aortic aneurysm, EtOH abuse, current smoker we have been consulted to see the patient for chest pain. Patient follows with Dr. Rosa in the office. Patient initially presented to the ER with substernal chest pain that did not radiate anywhere. Patient's EKG showed sinus rhythm without ischemic changes. Troponins are negative. Patient is found to be hypernatremic and hypokalemic. Her chest x-ray was negative for acute cardiopulmonary process. Her echocardiogram showed a normal LV function. Patient is seen resting comfortably in bed hoping to home today. She denies chest pain or increased shortness of breath. Potassium is 3.9 sodium 134 troponins negative 3 AST 60 5UP 72. TSH 1.78. Patient is clear for discharge and recommended she undergo outpatient stress test next week Objective - Vital Signs Vital signs: Vital Signs Temp 97.9 F 11/22/21 07:23 Pulse 59 L 11/22/21 07:23 Resp 17 11/22/21 07:23 BP 155/72 11/22/21 07:23 Pulse Ox 99 11/22/21 07:23 FiO2 Intake & Output 11/21/21 11/22/21 11/22/21 18:59 06:59 18:59 Intake Total 130 Output Total 39 Balance 91 Weight 104.326 kg Intake: Intake, IV Titration 130 Amount Sodium Chloride 0.9% 1, 130 000 ml @ 50 mls/hr IV . Q20H [facility] Rx#:[id number] Output: Post Void Residual 39 Other: Voiding Method Toilet # Voids 1 3 - Exam PHYSICAL EXAM: VITAL SIGNS: Reviewed. GENERAL: Well-developed in no acute distress. HEENT: Head is normocephalic. Pupils are equal, round. Sclerae anicteric. Mucous membranes of the mouth are moist. NECK: Supple. No JVD or thyromegaly RESPIRATORY: Respirations even and unlabored. Lungs diminished to auscultation bilaterally. CARDIO: Regular rate and rhythm. S1 and S2 heard. No murmur or gallops. EXTREMITIES: Normal range of motion. No clubbing or cyanosis. Peripheral pulses intact. Negative for bilateral lower extremity edema NEURO: Orientated to person, time, mood is appropriate - Labs CBC & Chem 7: 11/21/21 03:06 11/22/21 03:02 Labs: Abnormal Lab Results - Last 24 Hours (Table) 11/21/21 11/21/21 11/21/21 Range/Units 09:13 10:09 14:59 Sodium 123 L 125 L (137-145) mmol/L Chloride 82 L 85 L (98-107) mmol/L Carbon Dioxide (20.0-27.5) mmol/L Anion Gap (10.00-18.00) mmol/L Glucose 160 H 123 H (74-99) mg/dL Osmolality 259 L (280-301) mosm/kg AST (13-35) U/L ALT (8-44) U/L Ur Random Sodium <20 L (40-220) mmol/L 11/21/21 11/21/21 11/22/21 Range/Units 17:20 20:24 03:02 Sodium 126 L 127 L 134 L (137-145) mmol/L Chloride 88 L (98-107) mmol/L Carbon Dioxide 30.0 H (20.0-27.5) mmol/L Anion Gap 8.00 L (10.00-18.00) mmol/L Glucose 104 H (74-99) mg/dL Osmolality (280-301) mosm/kg AST 65 H (13-35) U/L ALT 72 H (8-44) U/L Ur Random Sodium (40-220) mmol/L Assessment and Plan Assessment: Chest pain acute [place] ruled out secondary to hyponatremia and hyperkalemia Hypertension Plan: Troponins negative sodium and potassium replaced Continue with current cardiac medications Patient cleared for discharge Recommended patient undergo outpatient stress test next week The above impression and plan of care have been discussed and directed by the signing physician. Roslyn Lawrence, nurse practitioner, acting as scribe for signing physician.
[2021-11-22 10:59] LABS: Basophils # (A) 0.01 X 10*3/uL (0.00-0.10); Basophils % (A) 0.3 %; Eosinophils # (A) 0.04 X 10*3/uL (0.04-0.35); Eosinophils % (A) 1.2 %; HCT 34.9 % (37.2-46.3); HGB 12.2 g/dL (12.0-15.0); Immature Grans, Automated 0.3 %; Lymphocytes # (A) 1.07 X 10*3/uL (0.90-5.00); Lymphocytes % (A) 32.3 %; MCH 34.6 pg (27.0-32.0); MCV 98.9 fL (80.0-97.0); Mean Platelet Volume 10.8 fL (9.5-12.2); Monocytes # (A) 0.51 X 10*3/uL (0.20-1.00); Monocytes % (A) 15.4 %; NRBC Per 100 WBC 0 /100 WBCS (0.0-0.0); Neutrophils # (A) 1.67 X 10*3/uL (1.80-7.70); Neutrophils % (A) 50.5 %; Platelet Count 84 X 10*3/uL (140-440); RBC 3.53 X 10*6/uL (4.10-5.20); RDW 12.9 % (11.5-14.5); WBC 3.31 X 10*3/uL (4.50-10.00)
--- NOTE | 2021-11-22 11:08 | P.DS ---
Providers Date of admission: 11/21/21 04:48 Expected date of discharge: 11/22/21 Attending physician: Regan Vasquez MD Consults: 11/21/21 08:39 Consult Physician Routine Consulting Provider: Marcelina Bhatti Consult Reason/Comments: hyponatremia 120 Do you want consulting provider notified?: Yes 11/21/21 09:38 Consult Physician Routine Consulting Provider: Yasemin Oneil Consult Reason/Comments: chest pain, new BBB Do you want consulting provider notified?: Yes Primary care physician: Mike Moon MD Hospital Course: Discharge Diagnosis: Hyponatremia secondary to hydrochlorothiazide Hypertension Hypokalemia Hypomagnesemia Dyslipidemia Atypical chest pain Tobacco abuse leukopenia Hospital Course: Patient is a 56-year-old female with known dyslipidemia, hypertension, and tobacco use who presented to the ER with complaints of chest pain. On arrival her blood pressure was 167/85. Laboratory analysis showed a white blood cell count of 3.4, platelets 107, sodium 120, potassium 3.1, chloride 81, carbon dioxide 21, magnesium 1.4. Initial troponin was negative. She was admitted and was started on IV fluids. Her hydrochlorothiazide was held. EKG did reveal a prolonged QRS. She was seen by nephro and cardio. Her urine labs ruled out SIADH. Cardio recommended outpatient surgery. Her sodium normalized and she was determined stable for discharge. Follow-up: Dr. Moon next week for repeat blood work and Dr. Oneil for otupatient stress test. Patient seen and examined at bedside. She has not coomplaints at this time. Denies chest pain or shortness of breath and wants to go home. Vital signs reviewed and stable. General: nontoxic, no distress, appears at stated age Derm: warm, dry Head: atraumatic, normocephalic, symmetric Eyes: EOMI, no lid lag, anicteric sclera Mouth: no lip lesion, mucus membranes moist Cardiovascular: S1S2 reg, no murmur, positive posterior tibial pulse bilateral, Lungs: CTA bilateral, no rhonchi, no rales , no accessory muscle use Abdominal: soft, nontender to palpation, no guarding, no appreciable organomegaly Ext: no gross muscle atrophy, no edema, no contractures Neuro: CN II-XI grossly intact, no focal neuro deficits Psych: Alert, oriented, appropriate affect A total of 35 minutes of time were spent preparing this complex discharge summary. Patient was discharged on 11/22/21. Patient Condition at Discharge: Fair Plan - Discharge Summary Discharge Rx Participant: No New Discharge Prescriptions: New lisinopriL 40 mg PO DAILY #30 tab Continue Atorvastatin [Lipitor] 20 mg PO HS atenoloL [Tenormin] 50 mg PO DAILY Aspirin 325 mg PO DAILY Discontinued Lisinopril-Hctz 20-12.5 mg [Zestoretic 20-12.5] 2 tab PO DAILY Discharge Medication List Atorvastatin [Lipitor] 20 mg PO HS 06/12/21 [History] atenoloL [Tenormin] 50 mg PO DAILY 06/12/21 [History] Aspirin 325 mg PO DAILY 11/21/21 [History] lisinopriL 40 mg PO DAILY #30 tab 11/22/21 [Rx] Follow up Appointment(s)/Referral(s): Yasemin Oneil MD [STAFF PHYSICIAN] - 1 Week Mike Moon MD [Primary Care Provider] - 1-2 days Activity/Diet/Wound Care/Special Instructions: Activity: as tolerated Diet: regular Special Instructions: ensure follow-up with Dr. Moon next week Bring your pill bottles to your appointment Discharge Disposition: HOME SELF-CARE
== END 2021-11-22 12:06 | disposition home or self-care (01) ==
LOC: EC 02:45 → INTOOBSV 04:48 → 4SSUR 04:48 → UNDODISIN 11-22 12:06
PROVIDERS: ADMIT Family Medicine; ATTEND Family Medicine
DX: R07.89 Other chest pain (principal); E87.1 Hypo-osmolality and hyponatremia; E83.42 Hypomagnesemia; E87.6 Hypokalemia; T50.2X5A Adverse effect of carbonic-anhydrase inhibitors, benzothiadiazides and other diuretics, initial encounter; I10 Essential (primary) hypertension; E78.5 Hyperlipidemia, unspecified; D69.6 Thrombocytopenia, unspecified; D72.819 Decreased white blood cell count, unspecified; I71.2 Thoracic aortic aneurysm, without rupture; F17.210 Nicotine dependence, cigarettes, uncomplicated; Z79.82 Long term (current) use of aspirin; Z79.899 Other long term (current) drug therapy; Z90.49 Acquired absence of other specified parts of digestive tract; Z98.51 Tubal ligation status; Z82.5 Family history of asthma and other chronic lower respiratory diseases; Z82.3 Family history of stroke; Z82.49 Family history of ischemic heart disease and other diseases of the circulatory system; Z71.6 Tobacco abuse counseling
CPT/HCPCS: 96361; 96365; 96366; 96375; 99285; 51798; 36415; 93005; 93306; 85379; 84300; 83930; 83880; 80053 ×2; 80048; 83735 ×2; 84295; 84443; 84484; 85025 ×2; 85610; 85730; 83935; 71046; G0378 ×2; S4990; J2405; J3475; C9113

== ENCOUNTER 2022-01-09 19:10 | Observation (INO) | payer OTHER ==
[2022-01-09 21:03] LABS: Basophils % (A) 0 %; Eosinophils % (A) 0 %; HCT 36.5 % (34.0-46.0); HGB 13.3 gm/dL (11.4-16.0); Lymphocytes # (A) 0.3 k/uL (1.0-4.8); Lymphocytes % (A) 3 %; MCHC 36.4 g/dL (31.0-37.0); Mean Platelet Volume 8.7; Monocytes # (A) 0.3 k/uL (0-1.0); Monocytes % (A) 3 %; Neutrophils # (A) 8.6 k/uL (1.3-7.7); Neutrophils % (A) 92 %; Platelet Count 209 k/uL (150-450); RDW 12.9 % (11.5-15.5); WBC 9.3 k/uL (3.8-10.6)
[2022-01-09 21:07] LABS: MCV 93.5 fL (80.0-100.0)
[2022-01-09 21:12] LABS: Prothrombin Time 11.1 sec (9.0-12.0)
[2022-01-09 21:15] LABS: ALT 99 U/L (4-34); AST 326 U/L (14-36); African American GFR (CKD) >90 (>60 ml/min/1.73 sqM); Albumin 3.4 g/dL (3.5-5.0); Alkaline Phosphatase 89 U/L (38-126); Anion Gap 15 mmol/L; Blood Urea Nitrogen 14 mg/dL (7-17); Calcium 8.5 mg/dL (8.4-10.2); Carbon Dioxide 16 mmol/L (22-30); Chloride 89 mmol/L (98-107); Glucose 113 mg/dL (74-99); Non-African American GFR(CKD) >90 (>60 ml/min/1.73 sqM); Potassium 3.2 mmol/L (3.5-5.1); Sodium 120 mmol/L (137-145); Total Bilirubin 0.9 mg/dL (0.2-1.3); Total Protein 6.3 g/dL (6.3-8.2)
[2022-01-09] MEDS ORDERED: ALBUTEROL NEBULIZED 2.5 MG/3 ML INHALATION PRN (22:00)
[2022-01-09] MEDS ORDERED: methylPREDNISolone SOD SUCCI 125 MG/2 ML VIAL IV STA (22:01)
[2022-01-09] MEDS ORDERED: SODIUM CHLORIDE 0.9% 1,000 ML IV STA ×2 (22:02)
[2022-01-09] MEDS ORDERED: POTASSIUM CHLORIDE ER 20 MEQ TAB.ER PO STA (22:28)
--- NOTE | 2022-01-09 22:36 | ED ---
General Adult HPI - General Chief complaint: Dizziness Stated complaint: Dizziness Time Seen by Provider: 01/09/22 21:50 Source: patient, RN notes reviewed, old records reviewed Mode of arrival: ambulatory Limitations: no limitations - History of Present Illness Initial comments: Patient is a 56-year-old female with past medical history remarkable for h yponatremia, tobacco use, hypertension who presents emergency Department complaining of lightheadedness dizziness going on for multiple days as well as shaking. Currently is not dizzy. States she was less dizzy a few days ago but is still having a generalized weakness, shaking sensation over the last few days. Wants to be evaluated. Denies chest pain or shortness of breath. Denies fevers, chills, cough. Denies abdominal pain, nausea, vomiting. States she has been attempting to be well-hydrated. Has no urinary complaints. No other acute complaints at this time. Presents for further evaluation. - Related Data Home Medications Medication Instructions Recorded Confirmed Atorvastatin [Lipitor] 20 mg PO HS 06/12/21 01/09/22 atenoloL [Tenormin] 50 mg PO DAILY 06/12/21 01/09/22 Aspirin 325 mg PO DAILY 11/21/21 01/09/22 Previous Rx's Medication Instructions Recorded lisinopriL 40 mg PO DAILY #30 tab 11/22/21 Allergies Allergy/AdvReac Type Severity Reaction Status Date / Time No Known Allergies Allergy Verified 01/09/22 22:17 Review of Systems ROS Statement: Those systems with pertinent positive or pertinent negative responses have been documented in the HPI. Review of Systems: CONST: Denies fever EYES: Denies blurry vision ENT: Denies nasal congestion C/V: Denies Chest pain RESP: Denies shortness of breath GI: Denies abdominal pain : Denies dysuria SKIN: Denies rash. MSK: Denies joint pain. NEURO: Denies headache ROS Other: All systems not noted in ROS Statement are negative. Past Medical History Past Medical History: No Reported History History of Any Multi-Drug Resistant Organisms: None Reported Past Surgical History: Cholecystectomy, Tubal Ligation Past Psychological History: No Psychological Hx Reported Smoking Status: Current every day smoker Past Alcohol Use History: Occasional Past Drug Use History: None Reported - Past Family History Father Family Medical History: COPD Mother Family Medical History: CVA/TIA, Myocardial Infarction ([place]) General Exam - General Exam Comments Initial Comments: General: Appears in no acute distress. HEAD: Normal with no signs of head trauma. EYES: PERRLA, EOMI, conjunctiva normal, no discharge. ENT: Hearing grossly intact, normal oropharynx. Mildly dry mucous membranes. RESPIRATORY: Mild bilateral index expiratory wheezing. No hypoxia. No tachypnea. C/V: Regular rate and rhythm. S1 and S2 auscultated, no edema, peripheral pulses 2+ and intact throughout ABD: Abd is soft, nontender, nondistended EXT: Normal range of motion, no obvious deformity SKIN: No rashes or lesions observed on exposed skin. NEURO: Alert and oriented x 4. Cranial nerves II-XII intact. No focal sensory or strength deficits. GCS of 15. NIH of 0. Cerebellar function is within normal limits as evident by normal finger to nose testing and [id number] testing. Limitations: no limitations Course Vital Signs 01/09/22 19:51 Temperature 97.9 F Pulse Rate 92 Respiratory 16 Rate Blood Pressure 124/82 O2 Sat by Pulse 98 Oximetry Procedures - [place] Protocol (Time Out) Nurse: Chris Arroyo Medical Decision Making - Medical Decision Making Based on the patient's presentation and physical exam, like to obtain cardiopulmonary workup for the patient. Exam is relatively unremarkable. Vital signs within normal limits. Workup was started in triage. It was remarkable for a hyponatremia of 120 and hypochloremia of 89. Patient is hypokalemic at 3.2. Patient is a mildly elevated AST of 326 and ALT of 99. Troponin is mildly elevated to 0.044 which is likely reactive secondary to dehydration. EKG shows no signs of acute ischemia. Chest x-ray does show left lower lobe pneumonia. She'll be started on antibiotics. blood cultures were sent. I discussed results with the patient. Neuro exam is normal at this time. She does appear to be having a mild COPD exacerbation in addition to dehydration, hyponatremia, hypo-kalemia. Patient has an elevated troponin, however no chest pain or signs of ACS and EKG. I did recommend we admit her and trend her troponin and monitor her sodium levels. She was in agreement this plan. I spoke with the admitting physician, who was in agreement this plan. Troponin will be trended. Urine studies ordered at the request of the admitting physician. We'll hold maintenance fluids at this time. - Lab Data Result diagrams: 01/09/22 20:10 01/09/22 20:10 Lab Results 01/09/22 01/09/22 01/09/22 Range/Units 20:10 20:10 20:10 WBC 9.3 (3.8-10.6) k/uL RBC 3.90 (3.80-5.40) m/uL Hgb 13.3 (11.4-16.0) gm/dL Hct 36.5 (34.0-46.0) % MCV 93.5 D (80.0-100.0) fL MCH 34.0 (25.0-35.0) pg MCHC 36.4 (31.0-37.0) g/dL RDW 12.9 (11.5-15.5) % Plt Count 209 (150-450) k/uL MPV 8.7 Neutrophils % 92 % Lymphocytes % 3 % Monocytes % 3 % Eosinophils % 0 % Basophils % 0 % Neutrophils # 8.6 H (1.3-7.7) k/uL Lymphocytes # 0.3 L (1.0-4.8) k/uL Monocytes # 0.3 (0-1.0) k/uL Eosinophils # 0.0 (0-0.7) k/uL Basophils # 0.0 (0-0.2) k/uL PT 11.1 (9.0-12.0) sec INR 1.0 (<1.2) APTT 28.0 (22.0-30.0) sec Sodium 120 L (137-145) mmol/L Potassium 3.2 L (3.5-5.1) mmol/L Chloride 89 L (98-107) mmol/L Carbon Dioxide 16 L (22-30) mmol/L Anion Gap 15 mmol/L BUN 14 (7-17) mg/dL Creatinine 0.74 (0.52-1.04) mg/dL Est GFR (CKD-EPI)AfAm >90 (>60 ml/min/1.73 sqM) Est GFR (CKD-EPI)NonAf >90 (>60 ml/min/1.73 sqM) Glucose 113 H (74-99) mg/dL Calcium 8.5 (8.4-10.2) mg/dL Total Bilirubin 0.9 (0.2-1.3) mg/dL AST 326 H (14-36) U/L ALT 99 H (4-34) U/L Alkaline Phosphatase 89 (38-126) U/L Troponin I (0.000-0.034) ng/mL Total Protein 6.3 (6.3-8.2) g/dL Albumin 3.4 L (3.5-5.0) g/dL 01/09/22 Range/Units 20:10 WBC (3.8-10.6) k/uL RBC (3.80-5.40) m/uL Hgb (11.4-16.0) gm/dL Hct (34.0-46.0) % MCV (80.0-100.0) fL MCH (25.0-35.0) pg MCHC (31.0-37.0) g/dL RDW (11.5-15.5) % Plt Count (150-450) k/uL MPV Neutrophils % % Lymphocytes % % Monocytes % % Eosinophils % % Basophils % % Neutrophils # (1.3-7.7) k/uL Lymphocytes # (1.0-4.8) k/uL Monocytes # (0-1.0) k/uL Eosinophils # (0-0.7) k/uL Basophils # (0-0.2) k/uL PT (9.0-12.0) sec INR (<1.2) APTT (22.0-30.0) sec Sodium (137-145) mmol/L Potassium (3.5-5.1) mmol/L Chloride (98-107) mmol/L Carbon Dioxide (22-30) mmol/L Anion Gap mmol/L BUN (7-17) mg/dL Creatinine (0.52-1.04) mg/dL Est GFR (CKD-EPI)AfAm (>60 ml/min/1.73 sqM) Est GFR (CKD-EPI)NonAf (>60 ml/min/1.73 sqM) Glucose (74-99) mg/dL Calcium (8.4-10.2) mg/dL Total Bilirubin (0.2-1.3) mg/dL AST (14-36) U/L ALT (4-34) U/L Alkaline Phosphatase (38-126) U/L Troponin I 0.044 H* (0.000-0.034) ng/mL Total Protein (6.3-8.2) g/dL Albumin (3.5-5.0) g/dL - EKG Data -: EKG Interpreted by Me EKG Comments: 12-lead Electrocardiogram Interpretation Note EKG was reviewed and interpreted by myself. 12-lead ECG performed at 2013 is interpreted by me as revealing normal sinus rhythm at a rate of 91 beats per minute. [place] is normal. RI intervals 168 ms, QRS duration is 106 ms, QTc is 409 ms.. There were no ST or T wave abnormalities to suggest myocardial ischemia or injury. R wave progression across the precordium was satisfactory. By my interpretation this EKG is non-diagnostic for acute ischemia. Disposition Clinical Impression: Dehydration, COPD exacerbation, Hyponatremia, Elevated troponin, Pneumonia Disposition: ADMITTED IP TO THIS HOSP Condition: Stable Referrals: Mike Moon MD [Primary Care Provider] - 1-2 days Time of Disposition: 22:40
--- NOTE | 2022-01-09 22:53 | XR ---
EXAMINATION TYPE: XR chest 2V DATE OF EXAM: 01/09/2022 COMPARISON: 11/21/2021 HISTORY: Dehydration TECHNIQUE: FINDINGS: Heart and mediastinum are normal. There is some airspace consolidation in the posterior left lower lo be. The right lung is clear. There are no hilar masses. Bony thorax is intact. IMPRESSION: There is left lower lobe pneumonia which is new compared to the old exam.
[2022-01-09] MEDS ORDERED: NALOXONE 0.4 MG/ML 1 ML VIAL IV PRN (23:22)
[2022-01-10] MEDS: AZITHROMYCIN 500 MG in SODIUM CHLORIDE 0.9% 250 ML IVPB SCH (00:50)
[2022-01-10] MEDS: HEPARIN SODIUM,PORCINE/PF 5,000 UNIT/0.5 ML SYRINGE SQ SCH ×3 (03:12→17:08)
[2022-01-10 03:33] LABS: Appearance,Urine Clear (Clear); Bacteria,Urine Occasional /hpf; Bilirubin,Urine Negative (Negative); Blood,Urine Moderate (Negative); Color,Urine Yellow; Glucose,Urine (UA) Negative (Negative); Ketones,Urine Trace (Negative); Leukocyte Esterase,Urine Negative (Negative); Mucus,Urine Rare /hpf; Nitrite,Urine Negative (Negative); PH, Urine 6.5 (5.0-8.0); Protein,Urine Trace (Negative); RBC,Urine 1 /hpf (0-5); Specific Gravity,Urine 1.007 (1.001-1.035); Squamous Epithelial Cell,Urine 1 /hpf (0-4); Urobilinogen,Urine <2.0 mg/dL (<2.0); WBC,Urine 1 /hpf (0-5)
--- NOTE | 2022-01-10 03:50 | P.HPIM ---
History of Present Illness H&P Date: 01/10/22 The patient is a 56-year-old female with a PMH of hypertension and hyperlipidemia who presents to the emergency room with complaints of lightheadedness and shakiness. The patient reports that she has been experiencing lightheadedness for the past week. She is unable to recall any inciting event. Reports that she did binge drink heavily one week ago but that she only drinks 1-2 beers on most days. Denied history of delirium tremens. Denies experiencing loss of consciousness or falls. Does state that she has been eating and drinking at her baseline during this time. Denies experiencing cough, fever, chills, chest discomfort, visual disturbances, nausea, vomiting, abdominal pain, diarrhea. Chest x-ray in the emergency room revealed a left lower lobe pneumonia with EKG showing sinus rhythm at 91 bpm. Laboratory evaluation was remarkable for sodium 120, potassium 3.2, chloride 89, troponin 0.044, and unremarkable UA with AST 326 and ALT 99. Review of systems: Pertinent positives and negatives as discussed in HPI, a complete review of systems was performed and all other systems are negative. Physical examination: General: Disheveled female, no distress, appears older than stated age, normal weight Derm: no unusual rashes/lesions, warm Head: atraumatic, normocephalic, symmetric Eyes: EOMI, no lid lag, anicteric sclera, pupils equal round reactive to light ENT: Nose and ears atraumatic Neck: No cervical lymphadenopathy, trachea midline, supple Mouth: no lip lesion, mucus membranes moist Cardiovascular: S1S2 reg, no murmur, positive dorsalis pedis pulse bilateral, no edema Lungs: CTA bilateral, no rhonchi, no rales, no accessory muscle use Abdominal: soft, nontender to palpation, no guarding Ext: muscle strength 5 out of 5 in all 4 extremities grossly, no gross muscle atrophy, no contractures, Neuro: CN II-XI grossly intact, no gross focal neuro deficits Psych: Alert, oriented, appropriate affect Assessment/plan Severe hypochloremic hyponatremia -Monitor sodium levels closely -Follow up urine and serum osmolality with urine sodium Elevated troponin -Trend for now -Cardiac monitoring -Patient denied chest discomfort or shortness of breath Community acquired pneumonia -Continue with azithromycin and ceftriaxone Hypokalemia -Replace and monitor Chronic conditions: Hypertension, hyperlipidemia -Continue with home meds DVT prophylaxis -Heparin subcu The patient is admitted with an anticipated less than 2 midnight stay for evaluation of hyponatremia CODE STATUS: Full Code Discussed with: Patient Anticipated discharge date: in am Anticipated discharge place: Home Past Medical History Past Medical History: No Reported History History of Any Multi-Drug Resistant Organisms: None Reported Past Surgical History: Cholecystectomy, Tubal Ligation Past Psychological History: No Psychological Hx Reported Smoking Status: Current every day smoker Past Alcohol Use History: Occasional Past Drug Use History: None Reported - Past Family History Father Family Medical History: COPD Mother Family Medical History: CVA/TIA, Myocardial Infarction ([place]) Medications and Allergies Home Medications Medication Instructions Recorded Confirmed Type Atorvastatin [Lipitor] 20 mg PO HS 06/12/21 01/09/22 History atenoloL [Tenormin] 50 mg PO DAILY 06/12/21 01/09/22 History Aspirin 325 mg PO DAILY 11/21/21 01/09/22 History lisinopriL 40 mg PO DAILY #30 tab 11/22/21 01/09/22 Rx Allergies Allergy/AdvReac Type Severity Reaction Status Date / Time No Known Allergies Allergy Verified 01/09/22 22:17 Physical Exam Vitals: Vital Signs Temp Pulse Pulse Resp BP BP Pulse Ox 01/10/22 01:20 98.9 F 81 18 104/72 94 L 01/10/22 01:02 78 15 138/69 99 01/09/22 19:51 97.9 F 92 16 124/82 98 Intake and Output 01/09/22 01/09/22 01/10/22 14:59 22:59 06:59 Other: Voiding Method Toilet Weight 108.862 kg 108.862 kg Results CBC & Chem 7: 01/09/22 20:10 01/09/22 20:10 Labs: Abnormal Lab Results - Last 24 Hours (Table) 01/09/22 01/09/22 01/09/22 Range/Units 20:10 20:10 20:10 Neutrophils # 8.6 H (1.3-7.7) k/uL Lymphocytes # 0.3 L (1.0-4.8) k/uL Sodium 120 L (137-145) mmol/L Potassium 3.2 L (3.5-5.1) mmol/L Chloride 89 L (98-107) mmol/L Carbon Dioxide 16 L (22-30) mmol/L Glucose 113 H (74-99) mg/dL AST 326 H (14-36) U/L ALT 99 H (4-34) U/L Troponin I 0.044 H* (0.000-0.034) ng/mL Albumin 3.4 L (3.5-5.0) g/dL Thrombosis Risk Factor Assmnt - Choose All That Apply Any of the Below Risk Factors Present?: Yes Each Factor Represents 1 point: Age 41-60 years Other Risk Factors: No Other congenital or acquired thrombophilia - If yes, enter type in comment: No Thrombosis Risk Factor Assessment Total Risk Factor Score: 1 Thrombosis Risk Factor Assessment Level: Low Risk
[2022-01-10 03:51] LABS: Creatinine,Urine Random 57.3 mg/dL; Protein/Creatinine Ratio,Urine 0.82
[2022-01-10] MEDS ORDERED: POTASSIUM CHLORIDE ER 20 MEQ TAB.ER PO STA ×2 (04:54→11:59)
[2022-01-10] MEDS ORDERED: THIAMINE 100 MG/ML 2 ML VIAL IM STA (08:09)
[2022-01-10] MEDS ORDERED: LORazepam 1 MG TAB PO PRN ×2 (08:09)
[2022-01-10 08:21] LABS: Basophils % (A) 0 %; Eosinophils % (A) 0 %; HCT 33.6 % (34.0-46.0); HGB 12.1 gm/dL (11.4-16.0); Lymphocytes # (A) 0.2 k/uL (1.0-4.8); Lymphocytes % (A) 3 %; MCH 34.3 pg (25.0-35.0); MCV 95.3 fL (80.0-100.0); Mean Platelet Volume 8.8; Monocytes # (A) 0.2 k/uL (0-1.0); Monocytes % (A) 2 %; Neutrophils # (A) 7.1 k/uL (1.3-7.7); Neutrophils % (A) 95 %; Platelet Count 188 k/uL (150-450); RBC 3.53 m/uL (3.80-5.40); RDW 13.2 % (11.5-15.5); WBC 7.5 k/uL (3.8-10.6)
[2022-01-10 08:47] LABS: African American GFR (CKD) >90 (>60 ml/min/1.73 sqM); Anion Gap 11 mmol/L; Blood Urea Nitrogen 14 mg/dL (7-17); Calcium 7.6 mg/dL (8.4-10.2); Carbon Dioxide 18 mmol/L (22-30); Chloride 98 mmol/L (98-107); Glucose 147 mg/dL (74-99); Non-African American GFR(CKD) >90 (>60 ml/min/1.73 sqM); Potassium 3.2 mmol/L (3.5-5.1); Sodium 127 mmol/L (137-145)
[2022-01-10] MEDS: methylPREDNISolone SOD SUCCI 40 MG/ML 1 ML VIAL IV SCH (09:22)
--- NOTE | 2022-01-10 14:52 | P.PN ---
Progress Note - Text Progress Note Date: 01/10/22 Hospitalist Interval Note Patient seen and examined at bedside. No changes. Vital signs reviewed General: [non toxic], [no distress], [appears at stated age] Derm: [warm], [dry] Head: [atraumatic], [normocephalic], [symmetric] Eyes: [EOMI], [no lid lag], [anicteric sclera] Mouth: [no lip lesion], [mucus membranes moist] Cardiovascular: [S1S2 reg], [no murmur], [positive posterior tibial pulse bilateral], Lungs: [CTA bilateral], [no rhonchi, no rales] , [no accessory muscle use] Abdominal: [soft], [ nontender to palpation], [no guarding], [no appreciable organomegaly] Ext: [no gross muscle atrophy], [no edema], [no contractures] Neuro: [ CN II-XI grossly intact], [no focal neuro deficits] Psych: [Alert], [oriented], [appropriate affect] Assessment/Plan: Hypovolemic hypernatremia Elevated troponin Community-acquired pneumonia Alcohol use disorder Hypokalemia Hypertension Hyperlipidemia -Patient started on CIWA protocol -Last drink was 2 days ago -Hyponatremia improving This is an update note for patient , for full note see 01/10/22 at 3:29. There is no charge associated with this note.
[2022-01-10 15:37] VITALS: RESP 16
[2022-01-10] MEDS: THIAMINE 100 MG TAB PO SCH (17:07)
[2022-01-11] MEDS: HEPARIN SODIUM,PORCINE/PF 5,000 UNIT/0.5 ML SYRINGE SQ SCH ×2 (00:10→09:07)
[2022-01-11] MEDS: AZITHROMYCIN 500 MG in SODIUM CHLORIDE 0.9% 250 ML IVPB SCH (00:59)
[2022-01-11] MEDS: methylPREDNISolone SOD SUCCI 40 MG/ML 1 ML VIAL IV SCH (09:07)
[2022-01-11] MEDS: THIAMINE 100 MG TAB PO SCH (09:08)
[2022-01-11 09:19] VITALS: BP 141/88; PULSE 73; TEMP 98.1
[2022-01-11 09:49] LABS: African American GFR (CKD) >90 (>60 ml/min/1.73 sqM); Anion Gap 12 mmol/L; Blood Urea Nitrogen 20 mg/dL (7-17); Calcium 8.2 mg/dL (8.4-10.2); Carbon Dioxide 17 mmol/L (22-30); Chloride 98 mmol/L (98-107); Glucose 181 mg/dL (74-99); Magnesium 2.2 mg/dL (1.6-2.3); Non-African American GFR(CKD) >90 (>60 ml/min/1.73 sqM); Potassium 3.7 mmol/L (3.5-5.1); Sodium 127 mmol/L (137-145)
--- NOTE | 2022-01-11 12:00 | P.DS ---
Providers Date of admission: 01/09/22 23:22 Expected date of discharge: 01/11/22 Attending physician: Constance Leblanc MD Primary care physician: Mike Moon MD Hospital Course: Discharge Diagnosis: Community acquired pneumonia Hypovolemic hyponatremia Elevated troponin Alcohol use disorder Hypokalemia Hypertension Dyslipidemia Hospital Course: 56-year-old female with history of hypertension dyslipidemia resented with ligh theadedness and shakiness. She was found to have left lower lobe pneumonia, was started on IV antibiotics. She was also noted to have mild elevation in her troponin, which down trended. She denied any chest pain. Her EKG showed sinus rhythm. She was also found to have hypovolemic hyponatremia which improved with IV fluids. Hypokalemia improved with oral supplements. She was discharged with oral antibiotics for community acquired pneumonia. She will have a follow-up PCP in 1-2 days. Patient seen and examined at bedside. Vital signs reviewed and stable. General: nontoxic, no distress, appears at stated age Derm: warm, dry Head: atraumatic, normocephalic, symmetric Eyes: EOMI, no lid lag, anicteric sclera Mouth: no lip lesion, mucus membranes moist Cardiovascular: S1S2 reg, no murmur Lungs: Left lower lobe rales , no accessory muscle use Abdominal: soft, nontender to palpation, no guarding, no appreciable organomegaly Ext: no gross muscle atrophy, no edema, no contractures Neuro: CN II-XI grossly intact, no focal neuro deficits Psych: Alert, oriented, appropriate affect A total of 38 minutes of time were spent preparing this complex discharge summary. Patient was discharged on 01/11/22 at 11:30. Patient Condition at Discharge: Stable Plan - Discharge Summary Discharge Rx Participant: No New Discharge Prescriptions: New Cefdinir [Omnicef] 300 mg PO Q12HR #3 capsule Thiamine [Vitamin B-1] 100 mg PO DAILY #30 tab Azithromycin [Zithromax] 500 mg PO DAILY 1 Days #1 tab Continue Atorvastatin [Lipitor] 20 mg PO HS lisinopriL 40 mg PO DAILY #30 tab atenoloL [Tenormin] 50 mg PO DAILY Aspirin 325 mg PO DAILY Discharge Medication List Atorvastatin [Lipitor] 20 mg PO HS 06/12/21 [History] atenoloL [Tenormin] 50 mg PO DAILY 06/12/21 [History] Aspirin 325 mg PO DAILY 11/21/21 [History] lisinopriL 40 mg PO DAILY #30 tab 11/22/21 [Rx] Azithromycin [Zithromax] 500 mg PO DAILY 1 Days #1 tab 01/11/22 [Rx] Cefdinir [Omnicef] 300 mg PO Q12HR #3 capsule 01/11/22 [Rx] Thiamine [Vitamin B-1] 100 mg PO DAILY #30 tab 01/11/22 [Rx] Follow up Appointment(s)/Referral(s): Mike Moon MD [Primary Care Provider] - 1-2 days (Office is closed at time of discharge. Ensure office is aware this is an appointment following a hospital stay.) Patient Instructions/Handouts: Bacterial Pneumonia (GEN) Activity/Diet/Wound Care/Special Instructions: Please see PCP in 1-2 days. Discharge/Stand Alone Forms: AA Meetings [facility], Outpatient Counseling, Inp Substance Abuse Facilities, [facility]
== END 2022-01-11 12:59 | disposition home health service (06) ==
LOC: EC 19:10 → 3SCARD 23:22
PROVIDERS: ADMIT Internal Medicine; ATTEND Internal Medicine
DX: J18.9 Pneumonia, unspecified organism (principal); J44.1 Chronic obstructive pulmonary disease with (acute) exacerbation; E87.8 Other disorders of electrolyte and fluid balance, not elsewhere classified; E86.0 Dehydration; J44.0 Chronic obstructive pulmonary disease with (acute) lower respiratory infection; R77.8 Other specified abnormalities of plasma proteins; E86.1 Hypovolemia; E87.0 Hyperosmolality and hypernatremia; E87.6 Hypokalemia; I10 Essential (primary) hypertension; F17.200 Nicotine dependence, unspecified, uncomplicated; E87.1 Hypo-osmolality and hyponatremia; E78.5 Hyperlipidemia, unspecified; Z79.899 Other long term (current) drug therapy; Z79.82 Long term (current) use of aspirin; Z90.49 Acquired absence of other specified parts of digestive tract; Z82.5 Family history of asthma and other chronic lower respiratory diseases; Z82.3 Family history of stroke; Z82.49 Family history of ischemic heart disease and other diseases of the circulatory system
CPT/HCPCS: 96376; 96366 ×2; 96372; 96375 ×2; 96368; 96365; 99285; 36415; 94640; 93005; 84300; 83930; 82570; 80053; 80048 ×2; 84156; 83735; 84484 ×2; 85025 ×2; 85610; 85730; 81001; 83935; 87040; 71046; G0378 ×3; G0480; J2920 ×2; J2930; J3411; J0456 ×2; J0696 ×2; J1644; 80320

== ENCOUNTER → 2022-10-01 | Outpatient (CLI) | payer OTHER ==
[2022-10-01 09:51] VITALS: BP 178/90; PULSE 55; RESP 18; TEMP 98.5
--- NOTE | 2022-10-01 11:09 | P.HPOB ---
History of Present Illness H&P Date: 10/01/22 Chief Complaint: The patient is here for her routine gynecologic exam. This is a 57-year-old 002 with an LMP of 2017. The patient is here to establish with this office. It has been more than 5 years since her last pelvic exam. She is without gynecologic complaints and denies any postmenopausal bleeding. Review of Systems The patient has gained 15 pounds over the last year. She denies respiratory, cardiac, or G.I. problems. 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 History of Any Multi-Drug Resistant Organisms: None Reported Past Surgical History: Cholecystectomy, Tubal Ligation Additional Past Surgical History / Comment(s): Colonoscopy 2021. Past Psychological History: No Psychological Hx Reported (She denies current depression.) Smoking Status: Current every day smoker (One pack per day.) Past Alcohol Use History: Occasional (6 per week.) Past Drug Use History: None Reported Additional History: She has been since 2003. She is currently unemployed. - Past Family History Father Family Medical History: Cancer, COPD, Diabetes Mellitus, Hyperlipidemia, Hypertension Additional Family Medical History / Comment(s): Throat cancer. Paternal aunt had breast cancer. Paternal grandfather had prostate cancer. Mother Family Medical History: CVA/TIA, Diabetes Mellitus, Hyperlipidemia, Hypertension, Myocardial Infarction ([place]) Medications and Allergies Home Medications Medication Instructions Recorded Confirmed Type Atorvastatin [Lipitor] 20 mg PO HS 06/12/21 10/01/22 History atenoloL [Tenormin] 50 mg PO DAILY 06/12/21 10/01/22 History Aspirin 325 mg PO DAILY 11/21/21 10/01/22 History lisinopriL 40 mg PO DAILY #30 tab 11/22/21 10/01/22 Rx Azithromycin [Zithromax] 500 mg PO DAILY 1 Days #1 tab 01/11/22 10/01/22 Rx Allergies Allergy/AdvReac Type Severity Reaction Status Date / Time No Known Allergies Allergy Verified 10/01/22 09:46 Exam Vital Signs Temp Pulse Resp BP Pulse Ox 10/01/22 09:47 98.5 F 55 L 18 178/90 97 Intake and Output 06/19/23 06/20/23 06/20/23 22:59 06:59 14:59 Other: Weight 108.862 kg Height 5 feet 7 inches, weight 240 pounds, BMI 37.6. This is a well-developed well-nourished white female who is alert and oriented times 3 in no acute distress. HEENT: Within normal limits. NECK: Supple without mass or thyromegaly. CHEST AND LUNGS: Clear to auscultation. HEART: Regular rate and rhythm. BREASTS: Are without mass or discharge. AXILLARY EXAM: Negative for adenopathy. BACK: Negative for CVA tenderness. ABDOMEN: Soft, nontender, without palpable masses. PELVIC EXAM: Normal external genitalia with mild atrophy. Cervix and vagina appear normal with mild atrophy. There is no unusual discharge. There is no evidence of prolapse. The uterus is midposition, nongravid size and nontender. There are no palpable adnexal masses or tenderness. RECTAL EXAM: Rectovaginal exam is negative for mass or tenderness and is negative for occult blood. EXTREMITIES: Nontender. IMPRESSION: 1. 57-year-old menopausal female with normal gynecologic exam. 2. Elevated blood pressure with history of chronic hypertension. PLAN: 1. Pap smear cotest was performed. 2. Self breast awareness was discussed with the patient. We have also discussed symptoms associated with inflammatory breast cancer. 3. Screening mammogram is scheduled for 10/21/2022 per the patient. The order slip was given to the patient for this. 4. Osteoporosis prevention was discussed. I have stressed the importance of adequate calcium, vitamin D and regular exercise. Recommended amounts of calcium and vitamin D were also discussed. Her PCP recommended she have a bone density test done and this is scheduled for 10/21/2022. The order slip was given to the patient for this. 5. I recommended that she try to quit smoking. We have discussed many reasons why this is important. 6. We have discussed her elevated blood pressure. I have recommended that she check her own blood pressures at home on a regular basis since she does have a blood pressure cuff. She will follow up with her PCP for blood pressure elevations. 7. She was advised to return in one year for her annual well woman exam.
== END ==
LOC: WWCWWP 09:38
PROVIDERS: ATTEND Obstetrics & Gynecology
DX: Z01.419 Encounter for gynecological examination (general) (routine) without abnormal findings (principal); N95.1 Menopausal and female climacteric states; I10 Essential (primary) hypertension; E78.5 Hyperlipidemia, unspecified; A74.9 Chlamydial infection, unspecified; Z80.3 Family history of malignant neoplasm of breast; F17.210 Nicotine dependence, cigarettes, uncomplicated; Z90.49 Acquired absence of other specified parts of digestive tract

== ENCOUNTER → 2023-01-24 | Outpatient (CLI) | payer OTHER ==
--- NOTE | 2023-01-24 14:56 | BD ---
EXAMINATION TYPE: Axial Bone Density DATE OF EXAM: 01/24/2023 CLINICAL HISTORY: 57 years old Female. ICD-10 CODE: Z78.0 POST MENOPAUSAL WITHOUT HRT Height: 65.75in Weight: 244lb FRAX RISK QUESTIONS: Secondary Osteoporosis: Current Tobacco Use: yes RISK FACTORS HISTORY OF: Active: yes Postmenopausal woman: yes MEDICATIONS: Additional Medications: bp meds, cholesterol meds, vitamin d Additional History: EXAM MEASUREMENTS: Bone mineral densitometry was performed using the [employer] System. Bone mineral density as measured about the Lumbar spine is: ----- L1-L4(G/cm2): 1.558 T Score Values are as follows: ----- L1: 2.9 ----- L2: 1.9 ----- L3: 4.1 ----- L4: 3.5 ----- L1-L4: 3.1 Z Score Values are as follows: ----- L1: 2.7 ----- L2: 1.7 ----- L3: 3.9 ----- L4: 3.2 ----- L1-L4: 2.9 First dexa at [facility] Bone mineral density about the R hip (g/cm2): 1.121 Bone mineral density about the L hip (g/cm2): 1.140 T Score values are as follows: -----R Neck: 0.6 -----L Neck: 0.6 -----R Total: 0.9 -----L Total: 1.0 Z Score values are as follows: -----R Neck: 0.9 -----L Neck: 1.0 -----R Total: 0.8 -----L Total: 1.0 FRAX%s: The graph provided illustrates a 4.4% chance for a major osteoporotic fx and a 0.1% chance fo r the hips probability for fx in 10 years time. IMPRESSION: Normal (Values between +1 and -1 indicate normal bone mass). Consider repeating this study in 5 year s or sooner if there is some new clinical indication. NOTE: T-SCORE=SD OF THE YOUNG ADULT MEAN.
--- NOTE | 2023-01-28 14:26 | MM ---
Reason for Exam: Screening (asymptomatic). Last mammogram was performed 1 year(s) and 8 month(s) ago. Patient History: Menarche at age 13. First Full-Term at age 27. Postmenopausal. Hormonal Contraceptives for 2 months. Paternal aunt had breast cancer. Risk Values: Catalina 5 year model risk: 1.4%. NCI Lifetime model risk: 8.9%. Prior Study Comparison: 02/27/2009 Bilateral Screening Mammogram, [facility]. 06/08/2021 Bilateral Screening Mammogram, [facility]. Tissue Density: There are scattered fibroglandular densities. Findings: Analyzed By CAD. Pattern appears symmetrical and stable. No significant interval changes are evident. No suspicious groups of microcalcifications, spiculated or lobular masses, architectural distortion or other secondary signs of malignancy are mammographically apparent. Overall Assessment: Benign, BI-RAD 2 Management: Screening Mammogram of both breasts in 1 year. A negative mammogram report should not preclude additional follow up of suspicious palpable abnormalities. Patient should continue monthly self breast exam. A clinical breast exam by your physician is recommended on an annual basis and results should be correlated with mammographic findings. Electronically signed and approved by: Gabriele Joseph D.O. Radiologis
--- NOTE | 2023-01-29 13:24 | P.PN ---
Progress Note - Text Progress Note Date: 01/29/23 OUTPATIENT FOLLOW-UP NOTE TEST(S)/RESULTS: Bone density test done on 01/24/2023 was normal. METHOD OF NOTIFICATION: A message with this result was left on the patient's voicemail on 01/29/2023. PATIENT COMMENTS: DIAGNOSIS: Normal bone density test DISCUSSION: I have stressed the importance of continuing to get adequate calcium, vitamin D, and regular exercise. We will plan on repeating the bone density test and approximate 6 years. PLAN: As above. She will return for her annual examination when that is due.
== END | disposition home or self-care (01) ==
LOC: RADBDWWP 13:09
PROVIDERS: ATTEND Obstetrics & Gynecology
DX: Z12.31 Encounter for screening mammogram for malignant neoplasm of breast (principal); Z78.0 Asymptomatic menopausal state; Z80.3 Family history of malignant neoplasm of breast
CPT/HCPCS: 77063; 77067; 77080

== ENCOUNTER → 2023-02-17 | Outpatient (CLI) | payer OTHER ==
[2023-02-17 12:15] LABS: Basophils # (A) 0.04 X 10*3/uL (0.00-0.10); Basophils % (A) 0.6 %; Eosinophils # (A) 0.17 X 10*3/uL (0.04-0.35); Eosinophils % (A) 2.4 %; HCT 42.4 % (37.2-46.3); HGB 14.5 d/dL (12.0-15.0); Lymphocytes # (A) 2.15 X 10*3/uL (0.90-5.00); Lymphocytes % (A) 29.7 %; MCHC 34.2 d/dL (32.0-37.0); MCV 99.3 FL (80.0-97.0); Mean Platelet Volume 10.4 FL (9.5-12.2); Monocytes # (A) 0.91 X 10*3/uL (0.20-1.00); Monocytes % (A) 12.6 %; NRBC Per 100 WBC 0 X 10*3/uL (0.00-0.01); Neutrophils # (A) 3.93 X 10*3/uL (1.80-7.70); Neutrophils % (A) 54.3 %; Platelet Count 152 X 10*3/uL (140-440); RBC 4.27 X 10*6/uL (4.10-5.20); RDW 12.6 % (11.5-14.5); WBC 7.23 X 10*3/uL (4.50-10.00)
[2023-02-17 12:55] LABS: ALT 57 U/L (8-44); AST 57 U/L (13-35); Albumin 4.2 d/dL (3.8-4.9); Albumin/Globulin Ratio 1.62 Ratio (1.60-3.17); Alkaline Phosphatase 82 U/L (41-126); BUN/Creat Ratio 13.17 Ratio (12.00-20.00); Blood Urea Nitrogen 7.9 mg/dL (9.0-27.0); Calcium 9.4 mg/dL (8.7-10.3); Carbon Dioxide 25.6 mmol/L (21.6-31.8); Chloride 103 mmol/L (96-109); Globulin 2.6 d/dL (1.6-3.3); Glucose 121 mg/dL (70-110); Potassium 3.7 mmol/L (3.5-5.5); Sodium 142 mmol/L (135-145); Total Bilirubin 0.6 mg/dL (0.3-1.2); Total Protein 6.8 d/dL (6.2-8.2)
[2023-02-18 14:44] LABS: Hepatitis A Antibody IgM Nonreactive; Hepatitis B Core IgM Nonreactive; Hepatitis B Surface Antigen Nonreactive; Hepatitis C IgG Antibody Nonreactive
[2023-02-18 14:54] LABS: % Iron Saturation 25.88 (12.00-45.00)
== END | disposition home or self-care (01) ==
LOC: LABWHC1 07:24
PROVIDERS: ATTEND Internal Medicine
DX: R73.9 Hyperglycemia, unspecified (principal); R74.01 Elevation of levels of liver transaminase levels
CPT/HCPCS: 36415; 80053; 80061; 80074; 83036; 83540; 83550; 84443; 85025; 86038

== ENCOUNTER → 2023-03-19 | Outpatient (CLI) | payer OTHER ==
--- NOTE | 2023-03-19 08:42 | US ---
EXAMINATION TYPE: US liver DATE OF EXAM: 03/19/2023 COMPARISON: US 2011 CLINICAL INDICATION: Female, 57 years old with history of R74.1 ELEVATION OF LEVELS OF LIVER TRANSAMI NASE LE; Elevated liver labs. TECHNIQUE: Multiple sonographic images of the right upper quadrant are obtained. FINDINGS: EXAM MEASUREMENTS: Liver Length: 20.2 cm Gallbladder Wall: Surgically absent CBD: 0.77 cm. Normal 0.6 cm. Right Kidney: 13.2 x 5.1 x 5.7 cm METERS SUPERINTENDENT NOTES:Limited due to overlying bowel gas and patient body habitus. Pancreas: Limited visibility of tail Liver: Enlarged. There is an anechoic area in the left lobe of the liver measuring 0.8 x 0.7 x 0.6 c m. Increased echogenicity. Gallbladder: Surgically absent Evidence for sonographic Garcia's sign: No CBD: Dilated Right Kidney: Enlarged IMPRESSION: 1. Hepatomegaly. 2. Small left hepatic cyst. 3. Mild prominence of the common bile duct.
== END | disposition home or self-care (01) ==
LOC: RADUSWWP 08:02
PROVIDERS: ATTEND Internal Medicine
DX: R16.0 Hepatomegaly, not elsewhere classified (principal); K76.89 Other specified diseases of liver; R74.01 Elevation of levels of liver transaminase levels
CPT/HCPCS: 76705

== ENCOUNTER 2024-01-23 18:55 | Emergency (ER) | payer OTHER ==
[2024-01-23 19:08] VITALS: RESP 18
--- NOTE | 2024-01-23 20:16 | ED ---
Eye Problem HPI - General Chief complaint: Eye Problems Stated complaint: R Eye Problem Time Seen by Provider: 01/23/24 20:15 Source: patient, RN notes reviewed Mode of arrival: ambulatory Limitations: no limitations - History of Present Illness Initial comments: 58-year-old female presented to the ER with a chief complaint of a right eye flashers and bubble. Patient underwent retinal detachment surgery on 01-09-2024 in [facility]. She states about a week after surgery she started to experience flashes of bright light in her right eye. She states today they have gotten worse and she has noticed a "bubble" in her eye. She denies any pain. Denies any new injuries or traumas. Denies double blurry vision. She has been following up with [facility]. No other complaints. - Related Data Home Medications Medication Instructions Recorded Confirmed Atorvastatin [Lipitor] 20 mg PO HS 06/12/21 10/01/22 atenoloL [Tenormin] 50 mg PO DAILY 06/12/21 10/01/22 Aspirin 325 mg PO DAILY 11/21/21 10/01/22 Previous Rx's Medication Instructions Recorded lisinopriL 40 mg PO DAILY #30 tab 11/22/21 Azithromycin [Zithromax] 500 mg PO DAILY 1 Days #1 tab 01/11/22 Allergies Allergy/AdvReac Type Severity Reaction Status Date / Time No Known Allergies Allergy Verified 10/01/22 09:46 Review of Systems ROS Statement: Those systems with pertinent positive or pertinent negative responses have been documented in the HPI. ROS Other: All systems not noted in ROS Statement are negative. 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 History of Any Multi-Drug Resistant Organisms: None Reported Past Surgical History: Cholecystectomy, Tubal Ligation Additional Past Surgical History / Comment(s): Colonoscopy 2021. Past Psychological History: No Psychological Hx Reported Smoking Status: Current every day smoker Past Alcohol Use History: Occasional Past Drug Use History: None Reported - Past Family History Father Family Medical History: Cancer, COPD, Diabetes Mellitus, Hyperlipidemia, Hypertension Additional Family Medical History / Comment(s): Throat cancer. Paternal aunt had breast cancer. Paternal grandfather had prostate cancer. Mother Family Medical History: CVA/TIA, Diabetes Mellitus, Hyperlipidemia, Hypertension, Myocardial Infarction (CA) General Exam Limitations: no limitations General appearance: alert, in no apparent distress Eye exam: Present: normal appearance, PERRL, EOMI. Absent: scleral icterus, conjunctival injection, periorbital swelling Pupils: Present: normal accommodation, other (Minimal conjunctival hemorrhage on the lateral aspect of right eye.) ENT exam: Present: normal exam, mucous membranes moist Respiratory exam: Present: normal lung sounds bilaterally. Absent: respiratory distress, wheezes, rales, rhonchi, stridor Cardiovascular Exam: Present: regular rate, normal rhythm, normal heart sounds. Absent: systolic murmur, diastolic murmur, rubs, gallop, clicks Neurological exam: Present: alert, oriented X3, CN II-XII intact Skin exam: Present: warm, dry, intact, normal color. Absent: rash Course Vital Signs 01/23/24 01/23/24 19:06 21:11 Pulse Rate 81 82 Respiratory 18 18 Rate Blood Pressure 129/86 114/83 O2 Sat by Pulse 98 98 Oximetry - Reevaluation(s) Reevaluation #1: 01/23/24 20:53 Case discussed with on-call ophthalmology, Dr. Miller. Case was discussed in detail he advised her to follow-up closely with her retinal specialist as these findings are normal after retinal surgery. 01/23/24 20:53 Visual acuity: OD 20/200, OS 20/70, OU 20/50 Pressures: OD 22, OS 16 Funduscopic exam benign Medical Decision Making - Medical Decision Making Was pt. sent in by a medical professional or institution (, PA, PSYCHOLOGIST INDUSTRIAL ORGANIZATIONAL, urgent care, hospital, or care home...) When possible be specific @ -No Did you speak to anyone other than the patient for history (EMS, parent, family, police, friend...)? What history was obtained from this source @ -No Did you review nursing and triage notes (agree or disagree)? Why? @ -I reviewed and agree with nursing and triage notes Were old charts reviewed (outside hosp., previous admission, EMS record, old EKG, old radiological studies, urgent care reports/EKG's, care home records)? Report findings @ -No old charts were reviewed Differential Diagnosis (chest pain, altered mental status, abdominal pain women, abdominal pain men, vaginal bleeding, weakness, fever, dyspnea, syncope, headache, dizziness, GI bleed, back pain, seizure, CVA, palpatations, mental health, musculoskeletal)? @ -Corneal abrasion, ocular foreign body, hyphema, conjunctivitis, globe rupture, acute angle-closure glaucoma this list is not meant to be all-inclusive EKG interpreted by me (3pts min.). @ -None done X-rays interpreted by me (1pt min.). @ -None done CT interpreted by me (1pt min.). @ -None done U/S interpreted by me (1pt. min.). @ -None done What testing was considered but not performed or refused? (CT, X-rays, U/S, labs)? Why? @ -None What meds were considered but not given or refused? Why? @ -None Did you discuss the management of the patient with other professionals (professionals i.e. , PA, PSYCHOLOGIST INDUSTRIAL ORGANIZATIONAL, lab, RT, psych nurse, geriatric social work professor, pcb designer, teacher, submarine advisory team watch officer, major case detective)? Give summary @ -Yes, case discussed in detail with on-call ophthalmology, Dr. Miller who advises on close follow-up with retinal specialist as these findings are common after retinal detachment surgery. Was smoking cessation discussed for >3mins.? @ -No Was critical care preformed (if so, how long)? @ -No Were there social determinants of health that impacted care today? How? (Homelessness, low income, unemployed, alcoholism, drug addiction, transportation, low edu. Level, literacy, decrease access to med. care, [place] [facility], rehab)? @ -No Was there de-escalation of care discussed even if they declined (Discuss DNR or withdrawal of care, Hospice)? DNR status @ -No What co-morbidities impacted this encounter? (DM, HTN, Smoking, COPD, CAD, Cancer, CVA, ARF, Chemo, Hep., AIDS, mental health diagnosis, sleep apnea, morbid obesity)? @ -Recent retinal detachment and surgery Was patient admitted / discharged? Hospital course, mention meds given and route, prescriptions, significant lab abnormalities, going to OR and other pertinent info. @ - Discharge. 58-year-old female presented to the ER with a chief complaint of visual flashes and "bubble". Patient underwent retinal detachment surgery 01-09-24. History and physical exam completed. Vitals within normal limits. Patient in no signs of acute distress. There is a small conjunctival hemorrhage to right lateral sclera. Pupils equal round and reactive with intact extraocular motions. Cornea is clear. Fluorescein stain negative for acute uptake. OD pressure 22. OS pressure 16. Visual acuity OD 20/200, OS 20/70, bilaterally 20/50. Case was discussed with on-call ophthalmology, Dr. Miller who advised on close follow-up with retinal specialist. Conversation with Dr. Miller was discussed with patient, all questions answered. Advise close follow- up with retinal specialist. Strict return parameters discussed. Patient discharged stable condition. Patient verbally expressed understanding and agreement with care plan. Case discussed with ED attending, Dr. Rodriguez. Undiagnosed new problem with uncertain prognosis? @ -No Drug Therapy requiring intensive monitoring for toxicity (Heparin, Nitro, Insulin, Cardizem)? @ -No Were any procedures done? @ -No Diagnosis/symptom? @ -History of retinal detachment/visual floaters Acute, or Chronic, or Acute on Chronic? @ -Acute Uncomplicated (without systemic symptoms) or Complicated (systemic symptoms)? @ -Uncomplicated Side effects of treatment? @ -No Exacerbation, Progression, or Severe Exacerbation? @ -No Poses a threat to life or bodily function? How? (Chest pain, USA, CA, pneumonia, PE, COPD, DKA, ARF, appy, cholecystitis, CVA, Diverticulitis, Homicidal, Suicidal, threat to staff... and all critical care pts) @ -No Disposition Clinical Impression: Hx of retinal detachment, Visual floaters Disposition: HOME SELF-CARE Condition: Stable Instructions (If sedation given, give patient instructions): Surgery for Ret inal Detachment (DC) Additional Instructions: Please follow-up closely with retinal specialist. Follow-up with them as scheduled on . Return to the ER for any new or worsening concerns. Is patient prescribed a controlled substance at d/c from ED?: No Referrals: Mike Moon, [Primary Care Provider] - 1-2 days Lillie Sexton MD [STAFF PHYSICIAN] - 1-2 days Boyd Miller MD [STAFF PHYSICIAN] - 1-2 days Time of Disposition: 20:56
[2024-01-23] MEDS: PROPARACAINE 0.5% OPHTH DROPS 15 ML BTL RIGHT EYE STA (20:21)
[2024-01-23] MEDS: FLUORESCEIN STRIPS 1 MG STRIP RIGHT EYE ONE (20:21)
[2024-01-23 21:12] VITALS: BP 114/83; PULSE 82
== END 2024-01-23 21:12 | disposition home or self-care (01) ==
LOC: EC 18:55
CPT/HCPCS: 99283

== ENCOUNTER → 2024-01-26 | Outpatient (CLI) | payer OTHER ==
--- NOTE | 2024-01-26 14:35 | MM ---
Reason for Exam: Screening (asymptomatic). Last screening mammogram was performed 12 month(s) ago. Patient History: Menarche at age 13. First Full-Term at age 27. Postmenopausal. Hormonal Contraceptives for 2 months. Paternal aunt had breast cancer. Risk Values: Catalina 5 year model risk: 1.4%. NCI Lifetime model risk: 8.7%. Prior Study Comparison: 02/27/2009 Bilateral Screening Mammogram, [facility]. 06/08/2021 Bilateral Screening Mammogram, [facility]. 01/24/2023 Bilateral MG 3D screening mammo w/cad, [facility]. Tissue Density: There are scattered areas of fibroglandular density. Findings: Analyzed By CAD. Right breast: There is no suspicious group of microcalcifications or new suspicious mass. Left breast: There is no suspicious group of microcalcifications or new suspicious mass. Overall Assessment: Negative, BI-RAD 1 Management: Screening Mammogram of both breasts in [address] [facility] will attempt to contact patient to return for supplemental views and ultrasound if indicated. Patient should continue monthly self-breast exams. A clinical breast exam by your physician is recommended on an annual basis. This exam should not preclude additional follow-up of suspicious palpable abnormalities. Note on Catalina scores and lifetime risk: 1. A Catalina score greater than 3% is considered moderate risk. If this is the case, consider specialist referral to assess eligibility for a risk reducing agent. 2. If overall lifetime risk for the development of breast cancer is 20% or higher, the patient may qualify for future screening with alternating mammogram and breast MRI. [facility], , 01/26/2024 2:31 PM. Electronically signed and approved by: Caio Concepcion DO
== END ==
LOC: RADMAMWWP 12:31
PROVIDERS: ATTEND Internal Medicine
CPT/HCPCS: 77063; 77067

== ENCOUNTER 2024-02-05 20:00 | Emergency (ER) | payer OTHER ==
[2024-02-05 20:10] VITALS: BP 139/83; PULSE 70; RESP 18; TEMP 97.6
--- NOTE | 2024-02-05 20:29 | ED ---
Eye Problem HPI - General Chief complaint: Eye Problems Stated complaint: R eye vision loss Time Seen by Provider: 02/05/24 20:14 Source: patient, RN notes reviewed, old records reviewed Mode of arrival: ambulatory Limitations: no limitations - History of Present Illness Initial comments: This is a 58-year-old female to the ER for evaluation today, patient presents with history of eye surgery concern for change in vision symptoms and that I, patient had eye surgery in [facility], we do not have ophthalmology on- call today patient will follow-up with an test engine evaluator currently and is in states that she will drive to see them today MD chief complaint: eye pain, vision change -: days(s) Location: right eye Place: home Severity: mild If Pain, Quality: sharp, burning Consistency: constant Context: recent uri Associated Symptoms: none Treatments Prior to Arrival: none - Related Data Patient Tetanus UTD: No Home Medications Medication Instructions Recorded Confirmed Atorvastatin [Lipitor] 20 mg PO HS 06/12/21 10/01/22 atenoloL [Tenormin] 50 mg PO DAILY 06/12/21 10/01/22 Aspirin 325 mg PO DAILY 11/21/21 10/01/22 Previous Rx's Medication Instructions Recorded lisinopriL 40 mg PO DAILY #30 tab 11/22/21 Azithromycin [Zithromax] 500 mg PO DAILY 1 Days #1 tab 01/11/22 Allergies Allergy/AdvReac Type Severity Reaction Status Date / Time No Known Allergies Allergy Verified 10/01/22 09:46 Review of Systems ROS Statement: Those systems with pertinent positive or pertinent negative responses have been documented in the HPI. ROS Other: All systems not noted in ROS Statement are negative. 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 History of Any Multi-Drug Resistant Organisms: None Reported Past Surgical History: Cholecystectomy, Tubal Ligation Additional Past Surgical History / Comment(s): Colonoscopy 2021. Past Psychological History: No Psychological Hx Reported Smoking Status: Current every day smoker Past Alcohol Use History: Occasional Past Drug Use History: None Reported - Past Family History Father Family Medical History: Cancer, COPD, Diabetes Mellitus, Hyperlipidemia, Hypertension Additional Family Medical History / Comment(s): Throat cancer. Paternal aunt had breast cancer. Paternal grandfather had prostate cancer. Mother Family Medical History: CVA/TIA, Diabetes Mellitus, Hyperlipidemia, Hypertension, Myocardial Infarction (IA) General Exam Limitations: no limitations General appearance: alert, in no apparent distress Head exam: Present: atraumatic, normocephalic, normal inspection Eye exam: Present: normal appearance, PERRL, EOMI. Absent: scleral icterus, conjunctival injection, periorbital swelling ENT exam: Present: normal exam, mucous membranes moist Neck exam: Present: normal inspection. Absent: tenderness, meningismus, lymphadenopathy Respiratory exam: Present: normal lung sounds bilaterally. Absent: respiratory distress, wheezes, rales, rhonchi, stridor Cardiovascular Exam: Present: regular rate, normal rhythm, normal heart sounds. Absent: systolic murmur, diastolic murmur, rubs, gallop, clicks GI/Abdominal exam: Present: soft, normal bowel sounds. Absent: distended, tenderness, guarding, rebound, rigid Extremities exam: Present: normal inspection, full ROM, normal capillary refill. Absent: tenderness, pedal edema, joint swelling, calf tenderness Back exam: Present: normal inspection Neurological exam: Present: alert, oriented X3, CN II-XII intact Psychiatric exam: Present: normal affect, normal mood Skin exam: Present: warm, dry, intact, normal color. Absent: rash Course Vital Signs 02/05/24 20:06 Temperature 97.6 F Pulse Rate 70 Respiratory 18 Rate Blood Pressure 139/83 O2 Sat by Pulse 99 Oximetry - Reevaluation(s) Reevaluation #1: Medical records reviewed Reevaluation #2: Patient symptoms improved Reevaluation #3: Patient informed of results questions answered Reevaluation #4: Was pt. sent in by a medical professional or institution (, PA, VOCATIONAL TRAINER, urgent care, hospital, or long term...) When possible be specific @ -no Did you speak to anyone other than the patient for history (EMS, parent, family, police, friend...)? What history was obtained from this source @ -no Did you review nursing and triage notes (agree or disagree)? Why? @ -agree Are old charts reviewed (outside hosp., previous admission, EMS record, old EKG, old radiological studies, urgent care reports/EKG's, long term records)? Report findings @ -yes Differential Diagnosis (chest pain, altered mental status, abdominal pain women, abdominal pain men, vaginal bleeding, weakness, fever, dyspnea, syncope, headache, dizziness, GI bleed, back pain, seizure, CVA, palpatations, mental health, musculoskeletal)? @ -prior EKG interpreted by me (3pts min.). @ -no X-rays interpreted by me (1pt min.). @ -no CT interpreted by me (1pt min.). @ -no U/S interpreted by me (1pt. min.). @ -no What testing was considered but not performed or refused? (CT, X-rays, U/S, labs)? Why? @ -none What meds were considered but not given or refused? Why? @ -none Did you discuss the management of the patient with other professionals (professionals i.e. , PA, VOCATIONAL TRAINER, lab, RT, psych nurse, psychosocial rehabilitation counselor, artificial flowers starcher, teacher, special technical operations officer, caser shoe parts)? Give summary @ -no Was smoking cessation discussed for >3mins.? @ -no Was critical care preformed (if so, how long)? @ -no Were there social determinants of health that impacted care today? How? (Homelessness, low income, unemployed, alcoholism, drug addiction, transportat ion, low edu. Level, literacy, decrease access to med. care, [facility], rehab)? @ -none Was there de-escalation of care discussed even if they declined (Discuss DNR or withdrawal of care, Hospice)? DNR status @ -no What co-morbidities impacted this encounter? (DM, HTN, Smoking, COPD, CAD, Cancer, CVA, ARF, Chemo, Hep., AIDS, mental health diagnosis, sleep apnea, morbid obesity)? @ -none Was patient admitted / discharged? Hospital course, mention meds given and route, prescriptions, significant lab abnormalities, going to OR and other pertinent info. @ - 58 female with right retinal detachment. Patient can be discharged home is sent to see her test engine evaluator who did prior surgery and to go there from here Discharge to see patient's own test engine evaluator Undiagnosed new problem with uncertain prognosis? @ -no Drug Therapy requiring intensive monitoring for toxicity (Heparin, Nitro, Insulin, Cardizem)? @ -no Were any procedures done? @ -no Diagnosis/symptom? @ -Vision changes Acute, or Chronic, or Acute on Chronic? @ -Acute Uncomplicated (without systemic symptoms) or Complicated (systemic symptoms)? @ -Complicated Side effects of treatment? @ -no Exacerbation, Progression, or Severe Exacerbation? @ -exacerbation Poses a threat to life or bodily function? How? (Chest pain, USA, [place], pneumonia, PE, COPD, DKA, ARF, appy, cholecystitis, CVA, Diverticulitis, Homicidal, Suicidal, threat to staff... and all critical care pts) @ -yes with acute vision loss Medical Decision Making - Medical Decision Making 58 female with right retinal detachment. Patient can be discharged home is sent to see her test engine evaluator who did prior surgery and to go there from here Disposition Clinical Impression: Retinal detachment, right, Vision loss Disposition: HOME SELF-CARE Condition: Good Instructions (If sedation given, give patient instructions): Surgery for Retinal Detachment (DC) Is patient prescribed a controlled substance at d/c from ED?: No Referrals: Mike Moon DO [Primary Care Provider] - 1-2 days Time of Disposition: 20:30
== END 2024-02-05 20:31 | disposition home or self-care (01) ==
LOC: EC 20:00
DX: H33.21 Serous retinal detachment, right eye (principal); H54.61 Unqualified visual loss, right eye, normal vision left eye; F17.200 Nicotine dependence, unspecified, uncomplicated
CPT/HCPCS: 99283

== ENCOUNTER → 2024-02-09 | Outpatient (CLI) | payer OTHER ==
--- NOTE | 2024-02-09 13:27 | CTL ---
EXAMINATION TYPE: CT Low Dose Lung DATE OF EXAM ORDERED: 02/09/2024 COMPARISON: CT chest 06/05/2022, CT Low Dose Lung 05/10/2021 CLINICAL INDICATION: Female, 58 years old with history of Z12.2 LUNG CA SCR F17.210 CURRENT SMOKER; P HH, personal h/o tobacco use, Lung cancer screening, History of Smoking/tobacco use. TECHNIQUE: Low dose computed tomography scan was performed through the chest at 1 mm thick sections a nd reconstructed images in multiple planes at 1 mm and [address] DLP: 121.[address] CTDI: 3.6 mGy Automated exposure control for dose reduction was used. CT DIAGNOSTIC QUALITY: Satisfactory FINDINGS: Nodules: Few stable scattered calcified granulomas. Stable pleural-based left upper lobe 3 mm lateral pulmonary nodule (series 6, image 16). Stable right midlung 2.8 mm pulmonary nodule (series 6, image 32). No new or enlarging pulmonary nodules. LUNGS: COPD: Severity: None Fibrosis: Severity: None Lymph nodes: Calcified nonenlarged bilateral hilar and subcarinal lymph nodes. Other findings: Linear scarring or atelectasis within the left lower lobe. RIGHT PLEURAL SPACE: Effusion: None Calcification: None Thickening: None Pneumothorax: None LEFT PLEURAL SPACE: Effusion: None Calcification: None Thickening: None Pneumothorax: None HEART: Heart Size: Normal Coronary Calcification: None Pericardial Effusion: None OTHER FINDINGS: Upper abdomen: Calcified granulomas within the liver and spleen. Bony thorax: None Supraclavicular region: Multiple moderate degenerative disc disease of the mid to lower thoracic spin e with anterior plate spondylosis of the lower thoracic spine. Other: Stable mild aneurysmal dilatation ascending thoracic aorta measuring up to 4.1 cm. IMPRESSION: 1. Couple of stable pulmonary nodules measuring 3 mm or less. No new or enlarging pulmonary nodules. 2. Stable mild ascending thoracic aortic aneurysm measuring up to 4.1 cm. 3. Sequelae of prior granulomatous disease. CT LUNG RAD AND CT CHEST RECOMMENDATION: Lung-Rad 2 Benign Appearance or Behavior: Continue annual sc reening with LDCT in 12 months. S Modifier (other clinically significant findings): None [facility], Workstation: Eleven James, 02/09/2024 1:24 PM
== END | disposition home or self-care (01) ==
LOC: RADCTMAIN 12:41
PROVIDERS: ATTEND Internal Medicine
CPT/HCPCS: 71271

== ENCOUNTER → 2024-02-10 | Outpatient (CLI) | payer OTHER ==
[2024-02-10 16:21] LABS: Chol/HDL Ratio 2.14 Ratio; LDL Cholesterol,Calculated 37.5 mg/dL (0.0-131.0)
[2024-02-10 16:22] LABS: ALT 23 U/L (8-44); AST 20 U/L (13-35)
== END | disposition home or self-care (01) ==
LOC: LABWHC1 09:36
PROVIDERS: ATTEND Internal Medicine Cardiovascular Disease
DX: E78.2 Mixed hyperlipidemia (principal)
CPT/HCPCS: 36415; 80061; 84450; 84460

== ENCOUNTER → 2024-04-06 | Outpatient (CLI) | payer OTHER ==
--- NOTE | 2024-04-06 11:33 | XR ---
EXAMINATION TYPE: XR knee 4V RT DATE OF EXAM: 04/06/2024 COMPARISON: NONE CLINICAL INDICATION: Female, 59 years old with history of M25.561 ACUTE PAIN IN RIGHT KNEE; TECHNIQUE: Three views are submitted. FINDINGS: Mild tricompartment space narrowing with marginal spurring. Small suprapatellar bursal fluid collecti on.. Osseous structures are intact. No acute fracture seen. Soft tissue calcifications incidentally noted. Likely vascular. IMPRESSION: 1. No acute fracture or dislocation. 2. Small suprapatellar bursal fluid collection. Indication BE associated with internal derangement of the knee. Correlate with MRI as warranted. 3. Mild osteoarthritis. [facility], , 04/06/2024 11:30 AM
== END | disposition home or self-care (01) ==
LOC: RADXRMAIN 11:06
PROVIDERS: ATTEND Internal Medicine
DX: M17.11 Unilateral primary osteoarthritis, right knee (principal)

== ENCOUNTER 2024-08-12 16:40 | Emergency (ER) | payer OTHER ==
[2024-08-12 16:56] VITALS: TEMP 97.8
[2024-08-12 17:11] LABS: Basophils # (A) 0.02 10*3/uL (0.00-0.10); Basophils % (A) 0.3 %; Eosinophils # (A) 0.07 10*3/uL (0.04-0.35); HCT 37.2 % (37.2-46.3); HGB 13.5 g/dL (12.0-15.0); Lymphocytes # (A) 1.96 10*3/uL (0.90-5.00); Lymphocytes % (A) 28.4 %; MCH 34.1 pg (27.0-32.0); MCHC 36.3 g/dL (32.0-37.0); MCV 93.9 fL (80.0-97.0); Mean Platelet Volume 9.2 fL (9.5-12.2); Monocytes # (A) 0.76 10*3/uL (0.20-1.00); Neutrophils # (A) 4.09 10*3/uL (1.80-7.70); Neutrophils % (A) 59.2 %; Platelet Count 208 10*3/uL (140-440); RBC 3.96 10*6/uL (4.10-5.20); RDW 12.6 % (11.5-14.5); WBC 6.91 10*3/uL (4.50-10.00)
--- NOTE | 2024-08-12 17:17 | ED ---
General Adult HPI - General Chief complaint: Abdominal Pain Stated complaint: Stomach/Abd Pain Time Seen by Provider: 08/12/24 16:58 Source: patient, RN notes reviewed Mode of arrival: ambulatory Limitations: no limitations - History of Present Illness Initial comments: This is a 59-year-old female with a history of hyperlipidemia, diabetes and hypertension presents emergency department for complaints of generalized abdominal pain that started yesterday evening. She thought that she was constipated however she had a small bowel movement this morning that was nonbloody and denies dark or sticky stools.. She denies associated diarrhea, nausea, vomiting, chest pain, difficulty breathing, urinary complaints, fevers, chills. Denies previous surgical abdominal history. Denies fevers - Related Data Home Medications Medication Instructions Recorded Confirmed Atorvastatin [Lipitor] 20 mg PO HS 06/12/21 08/12/24 Semaglutide [Wegovy] 0.5 mg SQ TU 08/12/24 08/12/24 atenoloL [Tenormin] 25 mg PO DAILY 08/12/24 08/12/24 hydroCHLOROthiazide [Hydrodiuril] 25 mg PO DAILY 08/12/24 08/12/24 metFORMIN HCL [Glucophage] 1,000 mg PO HS 08/12/24 08/12/24 Previous Rx's Medication Instructions Recorded lisinopriL 40 mg PO DAILY #30 tab 11/22/21 Allergies Allergy/AdvReac Type Severity Reaction Status Date / Time No Known Allergies Allergy Verified 08/12/24 18:14 Review of Systems ROS Statement: Those systems with pertinent positive or pertinent negative responses have been documented in the HPI. ROS Other: All systems not noted in ROS Statement are negative. Past Medical History Past Medical History: Hyperlipidemia, Hypertension Additional Past Medical History / Comment(s): Past [employer] history: Chlamydia in her 20s. History of Any Multi-Drug Resistant Organisms: None Reported Past Surgical History: Cholecystectomy, Tubal Ligation Additional Past Surgical History / Comment(s): Colonoscopy 2021. Past Psychological History: No Psychological Hx Reported Smoking Status: Current every day smoker Past Alcohol Use History: None Reported, Occasional Past Drug Use History: None Reported - Past Family History Father Family Medical History: Cancer, COPD, Diabetes Mellitus, Hyperlipidemia, Hypertension Additional Family Medical History / Comment(s): Throat cancer. Paternal aunt had breast cancer. Paternal grandfather had prostate cancer. Mother Family Medical History: CVA/TIA, Diabetes Mellitus, Hyperlipidemia, Hypertension, Myocardial Infarction ([place]) General Exam Limitations: no limitations General appearance: alert, in no apparent distress ENT exam: Present: normal exam, mucous membranes moist Neck exam: Present: normal inspection. Absent: tenderness, meningismus, lymphadenopathy Respiratory exam: Present: normal lung sounds bilaterally. Absent: respiratory distress, wheezes, rales, rhonchi, stridor Cardiovascular Exam: Present: regular rate, normal rhythm, normal heart sounds. Absent: systolic murmur, diastolic murmur, rubs, gallop, clicks GI/Abdominal exam: Present: soft, normal bowel sounds. Absent: distended, tenderness, guarding, rebound, rigid Extremities exam: Present: normal inspection, full ROM, normal capillary refill. Absent: tenderness, pedal edema, joint swelling, calf tenderness Back exam: Present: normal inspection. Absent: CVA tenderness (R), CVA tenderness (L) Skin exam: Present: warm, dry, intact, normal color. Absent: rash Course Vital Signs 08/12/24 08/12/24 16:54 18:55 Temperature 97.8 F 97.8 F Pulse Rate 74 71 Respiratory 18 20 Rate Blood Pressure 138/88 156/95 O2 Sat by Pulse 99 99 Oximetry Medical Decision Making - Medical Decision Making Was pt. sent in by a medical professional or institution (, PA, RAIL OPERATOR, urgent care, hospital, or longterm...) When possible be specific @ -No Did you speak to anyone other than the patient for history (EMS, parent, family, police, friend...)? What history was obtained from this source @ -No Did you review nursing and triage notes (agree or disagree)? Why? @ -I reviewed and agree with nursing and triage notes Were old charts reviewed (outside hosp., previous admission, EMS record, old EKG, old radiological studies, urgent care reports/EKG's, longterm records)? Report findings @ -No old charts were reviewed Differential Diagnosis (chest pain, altered mental status, abdominal pain women, abdominal pain men, vaginal bleeding, weakness, fever, dyspnea, syncope, headache, dizziness, GI bleed, back pain, seizure, CVA, palpatations, mental health, musculoskeletal)? @ -Differential Abdominal Pain Women: Appendicitis, Cholecystitis, diverticulosis, ischemic bowel, pancreatitis, hepatitis, UTI, gastroenteritis, AAA, incarcerated hernia, bowel obstruction, constipation, inflammatory bowel, hepatitis, peptic ulcer disease, splenic infarction, perforated viscus, vulvitis, ovarian torsion, PID, kidney stone, placenta abruption, this is not meant to be an all-inclusive list EKG interpreted by me (3pts min.). @ -None X-rays interpreted by me (1pt min.). @ -None done CT interpreted by me (1pt min.). @ -None done U/S interpreted by me (1pt. min.). @ -None done What testing was considered but not performed or refused? (CT, X-rays, U/S, labs)? Why? @ -None What meds were considered but not given or refused? Why? @ -None Did you discuss the management of the patient with other professionals (professionals i.e. , PA, RAIL OPERATOR, lab, RT, psych nurse, protective services social worker, blanket folder, teacher, labor relations officer, disease case manager)? Give summary @ -No Was smoking cessation discussed for >3mins.? @ -No Was critical care preformed (if so, how long)? @ -No Were there social determinants of health that impacted care today? How? (Homelessness, low income, unemployed, alcoholism, drug addiction, transportation, low edu. Level, literacy, decrease access to med. care, usp, rehab)? @ -No Was there de-escalation of care discussed even if they declined (Discuss DNR or withdrawal of care, Hospice)? DNR status @ -No What co-morbidities impacted this encounter? (DM, HTN, Smoking, COPD, CAD, Cancer, CVA, ARF, Chemo, Hep., AIDS, mental health diagnosis, sleep apnea, morbid obesity)? @ -None Was patient admitted / discharged? Hospital course, mention meds given and route, prescriptions, significant lab abnormalities, going to OR and other pertinent info. @ -Discharge. 59-year-old female presents emergency department with complaints of diffuse abdominal pain. Overall patient is well-appearing no signs of distre ss. Abdominal examination completed with no abdominal tenderness on palpation. Patient is provided with liter fluid bolus however she has declined stating that she would rather consume water orally.. Laboratory testing reveals hyponatremia with a sodium of 128, low chloride of 96 and hypokalemia with a potassium of 3.2. Urinalysis no signs of infection. She provided with potassium supplementation. Recommend patient follow-up with primary care provider. Return parameters discussed. Case discussed with Dr. Ricks Undiagnosed new problem with uncertain prognosis? @ -No Drug Therapy requiring intensive monitoring for toxicity (Heparin, Nitro, Insulin, Cardizem)? @ -No Were any procedures done? @ -No Diagnosis/symptom? @ -Unspecified abdominal pain, hypokalemia Acute, or Chronic, or Acute on Chronic? @ -Acute Uncomplicated (without systemic symptoms) or Complicated (systemic symptoms)? @ -Uncomplicated Side effects of treatment? @ -No Exacerbation, Progression, or Severe Exacerbation? @ -No Poses a threat to life or bodily function? How? (Chest pain, [place], [place], pneumonia, PE, COPD, DKA, ARF, appy, cholecystitis, CVA, Diverticulitis, Homicidal, Suicidal, threat to staff... and all critical care pts) @ -No - Lab Data Result diagrams: 08/12/24 17:06 08/12/24 17:06 Lab Results 08/12/24 08/12/24 08/12/24 Range/Units 17:06 17:06 17:06 WBC 6.91 (4.50-10.00) 10*3/uL RBC 3.96 L (4.10-5.20) 10*6/uL Hgb 13.5 (12.0-15.0) g/dL Hct 37.2 (37.2-46.3) % MCV 93.9 (80.0-97.0) fL MCH 34.1 H (27.0-32.0) pg MCHC 36.3 (32.0-37.0) g/dL Plt Count 208 (140-440) 10*3/uL MPV 9.2 L (9.5-12.2) fL Immature Gran % (Auto) 0.1 % Neutrophils % 59.2 % Lymphocytes % 28.4 % Monocytes % 11.0 % Eosinophils % 1.0 % Basophils % 0.3 % Immature Gran # 0.01 (0.00-0.04) 10*3/uL Neutrophils # 4.09 (1.80-7.70) 10*3/uL Lymphocytes # 1.96 (0.90-5.00) 10*3/uL Monocytes # 0.76 (0.20-1.00) 10*3/uL Eosinophils # 0.07 (0.04-0.35) 10*3/uL Basophils # 0.02 (0.00-0.10) 10*3/uL Sodium 128 L (137-145) mmol/L Potassium 3.2 L (3.5-5.1) mmol/L Chloride 96 L (98-107) mmol/L Carbon Dioxide 23 (22-30) mmol/L Anion Gap 9 mmol/L BUN 11 (7-17) mg/dL Creatinine 0.47 L (0.52-1.04) mg/dL Est GFR (CKD-EPI)AfAm >90 (>60 ml/min/1.73 sqM) Est GFR (CKD-EPI)NonAf >90 (>60 ml/min/1.73 sqM) Glucose 96 (74-99) mg/dL Plasma Lactic Acid Sonu 1.7 (0.7-2.0) mmol/L Calcium 8.7 (8.4-10.2) mg/dL Total Bilirubin 0.5 (0.2-1.3) mg/dL AST 32 (14-36) U/L ALT 36 H (4-34) U/L Alkaline Phosphatase 43 (38-126) U/L Total Protein 6.1 L (6.3-8.2) g/dL Albumin 3.7 (3.5-5.0) g/dL Lipase 73 (23-300) U/L Urine Color Urine Appearance (Clear) Urine pH (5.0-8.0) Ur Specific Pollock (1.001-1.035) Urine Protein (Negative) Urine Glucose (UA) (Negative) Urine Ketones (Negative) Urine Blood (Negative) Urine Nitrite (Negative) Urine Bilirubin (Negative) Urine Urobilinogen (<2.0) mg/dL Ur Leukocyte Esterase (Negative) Urine RBC (0-5) /hpf Urine WBC (0-5) /hpf Ur Squamous Epith Cells (0-4) /hpf Urine Bacteria (None) /hpf 08/12/24 Range/Units 17:49 WBC (4.50-10.00) 10*3/uL RBC (4.10-5.20) 10*6/uL Hgb (12.0-15.0) g/dL Hct (37.2-46.3) % MCV (80.0-97.0) fL MCH (27.0-32.0) pg MCHC (32.0-37.0) g/dL Plt Count (140-440) 10*3/uL MPV (9.5-12.2) fL Immature Gran % (Auto) % Neutrophils % % Lymphocytes % % Monocytes % % Eosinophils % % Basophils % % Immature Gran # (0.00-0.04) 10*3/uL Neutrophils # (1.80-7.70) 10*3/uL Lymphocytes # (0.90-5.00) 10*3/uL Monocytes # (0.20-1.00) 10*3/uL Eosinophils # (0.04-0.35) 10*3/uL Basophils # (0.00-0.10) 10*3/uL Sodium (137-145) mmol/L Potassium (3.5-5.1) mmol/L Chloride (98-107) mmol/L Carbon Dioxide (22-30) mmol/L Anion Gap mmol/L BUN (7-17) mg/dL Creatinine (0.52-1.04) mg/dL Est GFR (CKD-EPI)AfAm (>60 ml/min/1.73 sqM) Est GFR (CKD-EPI)NonAf (>60 ml/min/1.73 sqM) Glucose (74-99) mg/dL Plasma Lactic Acid Sonu (0.7-2.0) mmol/L Calcium (8.4-10.2) mg/dL Total Bilirubin (0.2-1.3) mg/dL AST (14-36) U/L ALT (4-34) U/L Alkaline Phosphatase (38-126) U/L Total Protein (6.3-8.2) g/dL Albumin (3.5-5.0) g/dL Lipase (23-300) U/L Urine Color Colorless Urine Appearance Clear (Clear) Urine pH 7.0 (5.0-8.0) Ur Specific Pollock 1.007 (1.001-1.035) Urine Protein Negative (Negative) Urine Glucose (UA) Negative (Negative) Urine Ketones Negative (Negative) Urine Blood Negative (Negative) Urine Nitrite Negative (Negative) Urine Bilirubin Negative (Negative) Urine Urobilinogen <2.0 (<2.0) mg/dL Ur Leukocyte Esterase Small H (Negative) Urine RBC 1 (0-5) /hpf Urine WBC 5 (0-5) /hpf Ur Squamous Epith Cells 4 (0-4) /hpf Urine Bacteria Rare H (None) /hpf Disposition Clinical Impression: Unspecified abdominal pain Disposition: HOME SELF-CARE Condition: Good Instructions (If sedation given, give patient instructions): Abdominal Pain (ED) Additional Instructions: Please return to the Emergency Department if symptoms worsen or any other concerns. Is patient prescribed a controlled substance at d/c from ED?: No Referrals: Mike Moon DO [Primary Care Provider] - 1-2 days Time of Disposition: 18:20
[2024-08-12 17:31] LABS: ALT 36 U/L (4-34); AST 32 U/L (14-36); African American GFR (CKD) >90 (>60 ml/min/1.73 sqM); Albumin 3.7 g/dL (3.5-5.0); Alkaline Phosphatase 43 U/L (38-126); Anion Gap 9 mmol/L; Blood Urea Nitrogen 11 mg/dL (7-17); Calcium 8.7 mg/dL (8.4-10.2); Carbon Dioxide 23 mmol/L (22-30); Chloride 96 mmol/L (98-107); Glucose 96 mg/dL (74-99); Lipase 73 U/L (23-300); Non-African American GFR(CKD) >90 (>60 ml/min/1.73 sqM); Potassium 3.2 mmol/L (3.5-5.1); Sodium 128 mmol/L (137-145); Total Bilirubin 0.5 mg/dL (0.2-1.3); Total Protein 6.1 g/dL (6.3-8.2)
[2024-08-12] MEDS: SODIUM CHLORIDE 0.9% 1,000 ML IV ONE (17:53)
[2024-08-12 18:07] LABS: Appearance,Urine Clear (Clear); Bacteria,Urine Rare /hpf; Bilirubin,Urine Negative (Negative); Blood,Urine Negative (Negative); Color,Urine Colorless; Glucose,Urine (UA) Negative (Negative); Ketones,Urine Negative (Negative); Leukocyte Esterase,Urine Small (Negative); Nitrite,Urine Negative (Negative); Protein,Urine Negative (Negative); RBC,Urine 1 /hpf (0-5); Specific Gravity,Urine 1.007 (1.001-1.035); Squamous Epithelial Cell,Urine 4 /hpf (0-4); Urobilinogen,Urine <2.0 mg/dL (<2.0); WBC,Urine 5 /hpf (0-5)
[2024-08-12] MEDS: POTASSIUM CHLORIDE ER 20 MEQ TAB.ER PO STA (18:12)
[2024-08-12 19:37] VITALS: BP 156/95; PULSE 71; RESP 20
== END 2024-08-12 18:56 | disposition home or self-care (01) ==
LOC: EC 16:40
DX: R10.84 Generalized abdominal pain (principal); E11.9 Type 2 diabetes mellitus without complications; E78.5 Hyperlipidemia, unspecified; I10 Essential (primary) hypertension; F17.200 Nicotine dependence, unspecified, uncomplicated
CPT/HCPCS: 36415; 80053; 81001; 83605; 83690; 85025; 99284

== ENCOUNTER → 2024-10-07 | Outpatient (CLI) | payer OTHER ==
[2024-10-07 20:06] LABS: Basophils # (A) 0.05 X 10*3/uL (0.00-0.10); Basophils % (A) 0.6 %; Eosinophils # (A) 0.09 X 10*3/uL (0.04-0.35); Eosinophils % (A) 1.1 %; HCT 38.2 % (37.2-46.3); HGB 13.1 g/dL (12.0-15.0); Lymphocytes # (A) 2.25 X 10*3/uL (0.90-5.00); Lymphocytes % (A) 28.1 %; MCH 32.4 pg (27.0-32.0); MCHC 34.3 g/dL (32.0-37.0); MCV 94.6 FL (80.0-97.0); Monocytes # (A) 0.74 X 10*3/uL (0.20-1.00); Monocytes % (A) 9.2 %; NRBC Per 100 WBC 0 X 10*3/uL (0.00-0.01); Neutrophils # (A) 4.86 X 10*3/uL (1.80-7.70); Neutrophils % (A) 60.8 %; Platelet Count 244 X 10*3/uL (140-440); RBC 4.04 X 10*6/uL (4.10-5.20); RDW 12.7 % (11.5-14.5); WBC 8.01 X 10*3/uL (4.50-10.00)
[2024-10-07 22:06] LABS: Anion Gap 12.6 mmol/L (4.00-12.00); Carbon Dioxide 25.4 mmol/L (21.6-31.8); Potassium 3.6 mmol/L (3.5-5.5)
== END | disposition home or self-care (01) ==
LOC: LABPAT 12:21
PROVIDERS: ATTEND Orthopaedic Surgery
DX: Z01.812 Encounter for preprocedural laboratory examination (principal); M23.91 Unspecified internal derangement of right knee
CPT/HCPCS: 80051; 85025

== ENCOUNTER 2024-10-14 11:58 | Day surgery (SDC) | payer OTHER ==
[~2024-10-14 11:58] MED LIST changes: +HYDROmorphone 0.5 MG/0.5 ML SYRINGE IVP PRN; -LACTATED RINGERS 1,000 ML IV SCH; +droPERidol 2.5 MG/ML VIAL IVP ONE
[2024-10-14] MEDS: IV FLUID CONTINUATION 1,000 ML IV ONE (12:20)
[2024-10-14 12:50] LABS: Glucose,Whole Blood 125 mg/dL (70-110)
[2024-10-14] MEDS: DEXAMETHASONE SOD PHOSPHATE 4 MG/ML 1 ML VIAL IV ONE (12:51)
[2024-10-14] MEDS: LACTATED RINGERS 1,000 ML IV SCH (12:51)
[2024-10-14] MEDS: ONDANSETRON 4 MG/2 ML VIAL IVP ONE (12:52)
[2024-10-14] MEDS ORDERED: GLYCOPYRROLATE 0.2 MG/ML 2 ML VIAL ONE (13:10)
[2024-10-14] MEDS ORDERED: MIDAZOLAM 2 MG/2 ML VIAL ONE (13:10)
[2024-10-14] MEDS ORDERED: LIDOCAINE 1% INJ 10MG/ML (20 ML MDV) ONE (13:10)
[2024-10-14] MEDS ORDERED: SUCCINYLCHOLINE CHLORIDE 200 MG/10 ML VIAL IV ONE (13:10)
[2024-10-14] MEDS ORDERED: LIDOCAINE 4% LTA KIT (4 ML) TOPICAL ONE (13:10)
[2024-10-14] MEDS ORDERED: fentaNYL (PF) 50 MCG/ML 2 ML AMP ONE (13:10)
[2024-10-14] MEDS ORDERED: KETOROLAC 15 MG/ML 1 ML VIAL ONE (13:10)
[2024-10-14] MEDS ORDERED: HYDROmorphone (PF) 1 MG/ML ONE (13:10)
[2024-10-14] MEDS ORDERED: PROPOFOL 10 MG/ML 20 ML VIAL IV ONE (13:10)
[2024-10-14] MEDS: BUPIVACAINE (PF) 0.25% 30 ML VIAL MISCELLANE ONE (13:56)
--- NOTE | 2024-10-14 14:14 | P.OP ---
Date of Procedure: 10/14/24 Preoperative Diagnosis: Internal derangement right knee Postoperative Diagnosis: 1. Tear medial and lateral meniscus right knee 2. Grade IV chondromalacia femoral sulcus right knee 3. Reactive synovitis medial, lateral and suprapatellar compartments right knee Procedure(s) Performed: 1. Arthroscopic partial medial and lateral meniscectomy right knee 2. Arthroscopic microfracture femoral sulcus right knee 3. Arthroscopic partial synovectomy medial, lateral and suprapatellar compartments right knee Anesthesia: BASIMA, local Surgeon: Campbell Marino Estimated Blood Loss (ml): 7 Pathology: none sent Condition: stable Disposition: PACU Indications for Procedure: 59-year-old patient seen with progressive right knee pain. After having treatment options discussed, she elected to proceed with arthroscopy. Operative Findings: See description of procedure Description of Procedure: Patient was taken to the operative suite. Patient underwent a general anesthetic by the department of anesthesia. Patient was given preoperative antibiotics. The right lower extremity was placed in a well-padded arthroscopic leg coats. The right leg was prepped and draped in the normal sterile orthopedic fashion. A lateral parapatellar and suprapatellar incision was made. Trochars were inserted. Arthroscopy was initiated. Suprapatellar pouch revealed diffuse thick reactive synovitis. The patellofemoral joint appeared to articulate congruently. There was grade II chondromalacia of the patella diffusely and an area of grade III chondromalacia of the femoral sulcus with an osteochondral flap tear present. The scope was guided into the medial gutter. No loose bodies or plica were identified. The scope was then guided into the medial compartment. A medial parapatellar incision was made. Trocar inserted followed by probe. There was a radial tear posterior medial meniscus. There were grade I chondromalacia changes about the medial compartment with no tears. There was some thick reactive synovitis anteriorly. I performed a partial medial meniscectomy getting down to stable meniscal tissue. I performed a partial synovectomy decompressing the reactive synovitis anteriorly. The residual meniscus was now probed and was found to be stable. There was good decompression of the synovitis. Scope and probe were then guided into the intercondylar notch. Cruciates were identified, probed and found to be stable. The scope and probe were then guided into lateral compartment. There was a complex tear involving the mid body and posterior horn area lateral meniscus. There was an area of grade II chondromalacia lateral femoral condyle with a small osteochondral flap tear present. There was some thick reactive synovitis anteriorly. I performed a partial lateral meniscectomy getting down to stable meniscal tissue. I performed a chondroplasty of the lateral femoral condyle getting down to stable osteochondral tissue. I performed a partial synovectomy decompressing the reactive synovitis. The residual meniscus was probed and was found to be stable. The residual osteochondral surface was stable. There was good decompression of the synovitis. The scope was in guided back into the suprapatellar compartment. I introduced a motorized shaver into the suprapatellar compartment. I debrided some piecemeal fragments of meniscus I encountered. I performed a partial synovectomy decompressing the reactive synovitis. I performed a chondroplasty of the femoral sulcus getting down to stable osteochondral tissue. I did note an area of grade IV chondromalacia/exposed bone involving the femoral sulcus which measured about a centimeter. I introduced a 20 degree microfracture awl and I performed a microfracture to the area of exposed bone of the femoral sulcus penetrating the bone with resultant bleeding at the microfracture site. That area was now probed and was found to be stable. There was good decompression of the synovitis. I took 1 more look around the entire knee, no residual debris. Instruments were now removed from the joint. The joint was infiltrated with .25% Marcaine. Steri-Strips were applied to the portal sites. Sterile dressings were applied. The patient was placed into a NOEMI hose. No tourniquet was utilized. The patient was awakened, transferred to a bed and taken to recovery stable satisfactory condition.
[2024-10-14 14:20] VITALS: TEMP 97.1
[2024-10-14 14:49] VITALS: PULSE 58; RESP 16
[2024-10-14 15:08] VITALS: BP 146/86
== END 2024-10-14 15:34 | disposition home or self-care (01) ==
LOC: OR 11:58
PROVIDERS: ATTEND Orthopaedic Surgery
DX: S83.241A Other tear of medial meniscus, current injury, right knee, initial encounter (principal); S83.281A Other tear of lateral meniscus, current injury, right knee, initial encounter; M65.861 Other synovitis and tenosynovitis, right lower leg; M94.261 Chondromalacia, right knee; I10 Essential (primary) hypertension; E78.5 Hyperlipidemia, unspecified; F17.210 Nicotine dependence, cigarettes, uncomplicated; Z79.84 Long term (current) use of oral hypoglycemic drugs; Z79.02 Long term (current) use of antithrombotics/antiplatelets; Z79.899 Other long term (current) drug therapy; X58.XXXA Exposure to other specified factors, initial encounter
CPT/HCPCS: 29880; 29876; 29879; J1100; J0690; J2405; J0665